=== PATIENT | female | born 1940 | race Two or more races ===

== ENCOUNTER 2017-01-12 04:11 | Inpatient (IN) | payer OTHER ==
[~2017-01-12] VITALS: Ht 160 cm; Wt 74.8 kg
[~2017-01-12 04:11] MED LIST: ATORVASTATIN CA80 MG PO; Aspirin PO; CARV3.122 PO; Doxycycline Hyclate PO; HYDR12.58 PO; IBUP200C9 PO; LEVO750T5 PO; LISI10TA2 PO
--- NOTE | 2017-01-12 04:33 | PHYS DOC ---
Past Medical History Past Medical History: CVA, High Cholesterol, Hypertension, Stroke Past Surgical History: Coronary Bypass Surgery Alcohol Use: None Drug Use: None Adult General Chief Complaint Chief Complaint: FLU SYMPTOM HPI HPI Patient is a 76 year old female who presents with 2 day history of general malaise and nausea with dry heaves; questionable subjective fever and cough; no diarrhea. Denies chest pain or shortness of breath. EMS noted a fever of 102.1 Fahrenheit. Review of Systems Review of Systems Constitutional: Denies fever or chills [] Eyes: Denies change in visual acuity, redness, or eye pain [] HENT: Denies nasal congestion or sore throat [] Respiratory: Denies cough or shortness of breath [] Cardiovascular: No additional information not addressed in HPI [] GI: Denies abdominal pain, nausea, vomiting, bloody stools or diarrhea [] : Denies dysuria or hematuria [] Musculoskeletal: Denies back pain or joint pain [] Integument: Denies rash or skin lesions [] Neurologic: Denies headache, focal weakness or sensory changes [] Endocrine: Denies polyuria or polydipsia [] Current Medications Current Medications Current Medications Medications (Trade) Dose Ordered Sig/Justino Start Time Stop Time Status Last Admin Dose Admin Azithromycin 500 mg/Sodium Chloride 250 ml @ 250 mls/hr 1X ONCE 01/12/17 05:15 01/12/17 06:14 UNV Ceftriaxone Sodium 1 gm/ Dextrose 50 ml @ 100 mls/hr Q24H 01/12/17 05:15 UNV Ondansetron HCl (Zofran) 4 mg 1X ONCE 01/12/17 05:00 01/12/17 05:01 DC 01/12/17 05:27 4 MG Sodium Chloride 500 ml @ 500 mls/hr 1X ONCE 01/12/17 05:00 01/12/17 05:59 01/12/17 05:22 500 MLS/HR Allergies Allergies Allergies Coded Allergies Type Severity Reaction Last Updated Verified No Known Drug Allergies 02/17/14 No Physical Exam Physical Exam Constitutional: Well developed, well nourished, no acute distress, non-toxic appearance. [] HENT: Normocephalic, atraumatic, bilateral external ears normal, oropharynx moist, no oral exudates, nose normal. [] Eyes: PERRLA, EOMI, conjunctiva normal, no discharge. [] Neck: Normal range of motion, no tenderness, supple, no stridor. [] Cardiovascular:Heart rate regular rhythm, no murmur [] Lungs & Thorax: Bilateral breath sounds clear to auscultation [] Abdomen: Bowel sounds normal, soft, no tenderness, no masses, no pulsatile masses. [] Skin: Warm, dry, no erythema, no rash. [] Back: No tenderness, no CVA tenderness. [] Extremities: No tenderness, no cyanosis, no clubbing, ROM intact, no edema. [] Neurologic: Alert and oriented X 3, normal motor function, normal sensory function, no focal deficits noted. [] Psychologic: Affect normal, judgement normal, mood normal. [] Current Patient Data Vital Signs Vital Signs Date Time Temp Pulse Resp B/P (MAP) Pulse Ox O2 Delivery O2 Flow Rate FiO2 01/12/17 04:29 100.2 89 22 156/87 (110) 91 Room Air 100.2 Lab Values Laboratory Tests Test 01/12/17 04:20 01/12/17 05:06 Urine Collection Type Unknown Urine Color Ale Urine Clarity Clear Urine pH 7.5 Urine Specific [place] 1.015 Urine Protein 30 mg/dL (NEG-TRACE) Urine Glucose (UA) Negative mg/dL (NEG) Urine Ketones (Stick) Negative mg/dL (NEG) Urine Blood Small (NEG) Urine Nitrite Negative (NEG) Urine Bilirubin Small (NEG) Urine Urobilinogen Dipstick 2.0 mg/dL (0.2 mg/dL) Urine Leukocyte Esterase Trace (NEG) Urine RBC 11-20 /HPF (0-2) Urine WBC 5-10 /HPF (0-4) Urine Squamous Epithelial Cells Many /LPF Urine Bacteria Few /HPF (0-FEW) Urine Mucus Slight /LPF Sodium Level 138 mmol/L (136-145) Potassium Level 4.0 mmol/L (3.5-5.1) Chloride Level 101 mmol/L (98-107) Carbon Dioxide Level 25 mmol/L (21-32) Anion Gap 12 (6-14) Blood Urea Nitrogen 26 mg/dL (7-20) H Creatinine 0.9 mg/dL (0.6-1.0) Estimated GFR (Cockcroft-Gault) 60.7 BUN/Creatinine Ratio 29 (6-20) H Glucose Level 132 mg/dL (70-99) H Lactic Acid Level 1.2 mmol/L (0.4-2.0) Calcium Level 9.6 mg/dL (8.5-10.1) Total Bilirubin Pending Aspartate Amino Transferase (AST) Pending Alanine Aminotransferase (ALT) Pending Alkaline Phosphatase Pending Total Protein Pending Albumin Pending Albumin/Globulin Ratio Pending Laboratory Tests 01/12/17 05:06 EKG EKG EKG normal sinus rhythm rate of 92 T-wave inversion in V1 and V2 V3 no priors for comparison QTC 473 my interpretation[] Radiology/Procedures Radiology/Procedures Chest x-ray[ infiltrate right lower lung, hiatal hernia my interpretation] Course & Med Decision Making Course & Med Decision Making Pertinent Labs and Imaging studies reviewed. (See chart for details) [Plan to hydrate, give Zofran, check labs including urinalysis and chest x-ray. Patient appears to have a right lower lobe infiltrate. Urinalysis looked okay. Treated with IV Rocephin and azithromycin. Discussed case with Dr. Bell hospitalist for admission. Stable for the floor.\ She was a difficult stick in terms of obtaining blood at the time of admission CBC and troponin are pending.] Dragon Disclaimer Dragon Disclaimer This electronic medical record was generated, in whole or in part, using a voice recognition dictation system. Departure Departure Impression: Primary Impression: Community acquired pneumonia Additional Impression: Hypoxia Disposition: 09 ADMITTED INPATIENT Admitting Physician: Rebecca Bell Condition: IMPROVED Referrals: HOLLIE PAGE (PCP) Problem Qualifiers NICHOLAS CALVERT MD Jan 12, 2017 04:33
[2017-01-12 04:52] LABS: BILIRUBIN,URINE SMALL (NEG); GLUCOSE,URINE NEGATIVE (NEG); NITRITE,URINE NEGATIVE (NEG); PH,URINE 7.5; PROTEIN,URINE 30 mg/dL (NEG-TRACE)
[2017-01-12] MEDS ORDERED: ONDANSETRON PF 4 MG/2 ML VIAL. IV ONE (05:00)
[2017-01-12] MEDS ORDERED: IV NORMAL SALINE 500ML BAG 500 ML IV ONE (05:00)
[2017-01-12 05:02] LABS: BACTERIA,URINE FEW /HPF (0-FEW); SQUAMOUS EPITHELIAL CELL,UR MANY /LPF
[2017-01-12] MEDS ORDERED: AZITHROMYCIN 500 MG in IV NORMAL SALINE 250ML 250 ML IV ONE (05:15)
[2017-01-12] MEDS ORDERED: IV NORMAL SALINE 1000ML BAG 1,000 ML IV SCH (05:24)
[2017-01-12 05:29] LABS: CALCIUM 9.6 mg/dL (8.5-10.1); CREATININE 0.9 mg/dL (0.6-1.0); GFR 60.7
[2017-01-12] MEDS ORDERED: ACETAMINOPHEN 325 MG TABLET. PO PRN (05:30)
[2017-01-12] MEDS ORDERED: ONDANSETRON PF 4 MG/2 ML VIAL. IV PRN ×2 (05:30→09:45)
[2017-01-12] MEDS ORDERED: MORPHINE SULFATE 2 MG/ML DISP.SYRIN. IV PRN (05:30)
[2017-01-12] MEDS ORDERED: AZITHRMYCN 500MG IVPB FOR OMNI 250 ML IV ONE (05:30)
[2017-01-12 05:44] LABS: ALBUMIN 3.6 g/dL (3.4-5.0); ALBUMIN/GLOBULIN RATIO 0.8 (1.0-1.7); TOTAL BILIRUBIN 2.7 mg/dL (0.2-1.0); TOTAL PROTEIN 7.9 g/dL (6.4-8.2)
[2017-01-12 05:49] LABS: BASO % 0 % (0-3); EOS % 1 % (0-3); HEMATOCRIT 36.1 % (36.0-47.0); LYMPH # 0.6 x10^3/uL (1.0-4.8); LYMPH % 10 % (24-48); MEAN CORPUSCULAR HEMOGLOBIN 32 pg (25-35); MEAN CORPUSCULAR HGB CONC 33 g/dL (31-37); MEAN CORPUSCULAR VOLUME 97 fL (79-100); MONO % 4 % (0-9); NEUT % 85 % (31-73); PLATELET COUNT 123 x10^3/uL (140-400); RED BLOOD COUNT 3.71 x10^6/uL (3.50-5.40); RED CELL DISTRIBUTION WIDTH 14.1 % (11.5-14.5); WHITE BLOOD COUNT 6.4 x10^3/uL (4.0-11.0)
[2017-01-12 05:51] LABS: OBC FLU VALID
--- NOTE | 2017-01-12 06:46 | EKG ---
[facility] [address] [place] [address] Test Date: 2017-01-12 Test Time: 06:41:37 Pat Name: WELLINGTON DINH Department: Room: 530 1 Gender: F Courtesy Van Driver: LAURYN : 1940 Requested By: NICHOLAS CALVERT Order Number: [id number] Reading MD: Marilyn Cueva Measurements Intervals [place] Rate: 86 P: -118 DC: 114 QRS: 24 QRSD: 90 T: 47 QT: 406 QTc: 489 Interpretive Statements SINUS RHYTHM ST& T ABNORMALITY, CONSIDER ANTERIOR ISCHEMIA ABNORMAL ECG Electronically Signed On 01-13-2017 16:46:38 CDT by Marilyn Cueva
[2017-01-12 07:00] VITALS: BP 124/65
[2017-01-12 07:52] LABS: % EOS 1 % (0-5); PLT ESTIMATE DECREASED (ADEQUATE)
--- NOTE | 2017-01-12 07:56 | PDOC2 ---
SOCORRO BENOIT ISOBUTYLENE OPERATOR CHIEF 01/12/17 0756: CARDIAC CONSULT DATE OF CONSULT Date of Consult DATE: 01/12/17 TIME: 07:52 REASON FOR CONSULT Reason for Consult: Elevated troponin REFERRING PHYSICIAN Referring Physician: Dr. Bell SOURCE Source: Chart review, Patient HISTORY OF PRESENT ILLNESS HISTORY OF PRESENT ILLNESS This is a 76 yo female who presented with complaints of not feeling well overall. Has had chills and "flu-like" symptoms for the last couple of days. Had nausea with vomiting yesterday. This morning, was short of breath. Called Ask a Nurse, who referred the patient to the ED. Denies any chest pain, palpitations, dizziness, or diaphoresis. PAST MEDICAL HISTORY Cardiovascular: HTN, Hyperlipidemia, Other (aortic aneurysm s/p repair 20 years ago) CENTRAL NERVOUS SYSTEM: CVA (following aneurysm repair) GI: GERD Heme/Onc: No pertinent hx Hepatobiliary: No pertinent hx Psych: No pertinent hx Musculoskeletal: Other (left-sided weakness CVA residual ) Rheumatologic: No pertinent hx Infectious disease: No pertinent hx ENT: No pertinent hx Renal/: No pertinent hx Endocrine: No pertinent hx Dermatology: No pertinent hx PAST SURGICAL HISTORY Past Surgical History: Other (knee surgery) FAMILY HISTORY Family History: Other (noncontributory ) SOCIAL HISTORY Smoke: No ALCOHOL: none Drugs: None Lives: with Family CURRENT MEDICATIONS CURRENT MEDICATIONS Current Medications Medications (Trade) Dose Ordered Sig/Justino Route PRN Reason Start Time Stop Time Status Last Admin Dose Admin Sodium Chloride 500 ml @ 500 mls/hr 1X ONCE IV 01/12/17 05:00 01/12/17 05:59 DC 01/12/17 05:22 Ondansetron HCl (Zofran) 4 mg 1X ONCE IV 01/12/17 05:00 01/12/17 05:01 DC 01/12/17 05:27 Ceftriaxone Sodium 50 ml @ 100 mls/hr 1X ONCE IV 01/12/17 05:30 01/12/17 05:59 DC 01/12/17 05:28 Azithromycin 250 ml @ 250 mls/hr 1X ONCE IV 01/12/17 05:30 01/12/17 06:29 DC 01/12/17 07:02 Sodium Chloride 1,000 ml @ 125 mls/hr Q8H IV 01/12/17 05:24 01/13/17 05:23 01/12/17 06:43 ALLERGIES ALLERGIES: Coded Allergies: No Known Drug Allergies (Unverified , 02/17/14) ROS Review of System 14 point ROS conducted with pertinent positives noted above in HPI. PHYSICAL EXAM General: Alert, Oriented X3, Cooperative HEENT: Atraumatic, Mucous membr. moist/pink Lungs: Clear to auscultation, Other (diminished bases ) Heart: Regular rate, Normal S1, Normal S2, Other (2/6 systolic murmur ) Abdomen: No tenderness Extremities: No edema, Normal pulses Skin: No significant lesion Neuro: Normal speech, Sensation intact Psych/Mental Status: Mental status NL, Mood NL MUSCULOSKELETAL: Other (left side strength diminished) VITALS VITALS Vital Signs Date Time Temp Pulse Resp B/P (MAP) Pulse Ox O2 Delivery O2 Flow Rate FiO2 01/12/17 05:47 91 25 134/61 (85) 98 Nasal Cannula 2.0 01/12/17 04:29 100.2 100.2 LABS Lab: Laboratory Tests Test 01/12/17 04:20 01/12/17 05:06 01/12/17 05:10 01/12/17 05:40 Urine Collection Type Unknown Urine Color Ale Urine Clarity Clear Urine pH 7.5 Urine Specific [place] 1.015 Urine Protein 30 mg/dL (NEG-TRACE) Urine Glucose (UA) Negative mg/dL (NEG) Urine Ketones (Stick) Negative mg/dL (NEG) Urine Blood Small (NEG) Urine Nitrite Negative (NEG) Urine Bilirubin Small (NEG) Urine Urobilinogen Dipstick 2.0 mg/dL (0.2 mg/dL) Urine Leukocyte Esterase Trace (NEG) Urine RBC 11-20 /HPF (0-2) Urine WBC 5-10 /HPF (0-4) Urine Squamous Epithelial Cells Many /LPF Urine Bacteria Few /HPF (0-FEW) Urine Mucus Slight /LPF Sodium Level 138 mmol/L (136-145) Potassium Level 4.0 mmol/L (3.5-5.1) Chloride Level 101 mmol/L (98-107) Carbon Dioxide Level 25 mmol/L (21-32) Anion Gap 12 (6-14) Blood Urea Nitrogen 26 mg/dL (7-20) Creatinine 0.9 mg/dL (0.6-1.0) Estimated GFR (Cockcroft-Gault) 60.7 BUN/Creatinine Ratio 29 (6-20) Glucose Level 132 mg/dL (70-99) Lactic Acid Level 1.2 mmol/L (0.4-2.0) Calcium Level 9.6 mg/dL (8.5-10.1) Total Bilirubin 2.7 mg/dL (0.2-1.0) Aspartate Amino Transf (AST/SGOT) 1136 U/L (15-37) Alanine Aminotransferase (ALT/SGPT) 1239 U/L (14-59) Alkaline Phosphatase 170 U/L (46-116) Troponin I Quantitative 0.143 ng/mL (0.000-0.055) Total Protein 7.9 g/dL (6.4-8.2) Albumin 3.6 g/dL (3.4-5.0) Albumin/Globulin Ratio 0.8 (1.0-1.7) Influenza Type A Antigen Negative (NEGATIVE) Influenza Type B Antigen Negative (NEGATIVE) White Blood Count 6.4 x10^3/uL (4.0-11.0) Red Blood Count 3.71 x10^6/uL (3.50-5.40) Hemoglobin 12.0 g/dL (12.0-15.5) Hematocrit 36.1 % (36.0-47.0) Mean Corpuscular Volume 97 fL (79-100) Mean Corpuscular Hemoglobin 32 pg (25-35) Mean Corpuscular Hemoglobin Concent 33 g/dL (31-37) Red Cell Distribution Width 14.1 % (11.5-14.5) Platelet Count 123 x10^3/uL (140-400) Neutrophils (%) (Auto) 85 % (31-73) Lymphocytes (%) (Auto) 10 % (24-48) Monocytes (%) (Auto) 4 % (0-9) Eosinophils (%) (Auto) 1 % (0-3) Basophils (%) (Auto) 0 % (0-3) Neutrophils # (Auto) 5.5 x10^3uL (1.8-7.7) Lymphocytes # (Auto) 0.6 x10^3/uL (1.0-4.8) Monocytes # (Auto) 0.3 x10^3/uL (0.0-1.1) Eosinophils # (Auto) 0.1 x10^3/uL (0.0-0.7) Basophils # (Auto) 0.0 x10^3/uL (0.0-0.2) ASSESSMENT/PLAN ASSESSMENT/PLAN 1. Elevated troponin; most probably type II demand ischemia. Doubt ACS 2. Acute respiratory failure with infiltrate versus pul edema. CT chest pending 3. Abdominal pain with transaminitis 4. Fevers 5. Hypertension 6. Hyperlipidemia Recommendations Trend troponin. Check lipids and NT Pro BNP Obtain echo to assess LV function/presence of WMA Resume home antiHTN therapy Supportive care. Further recommendations pending diagnostics. Problems: DAMON BURK MD 01/13/17 0111: CARDIAC CONSULT ALLERGIES ALLERGIES: Coded Allergies: No Known Drug Allergies (Unverified , 02/17/14) ASSESSMENT/PLAN ASSESSMENT/PLAN Pt. seen and examined. Agree with above PADDING GLUER note. Non-specific cardiac findings. Trop elevation likely secondary to other acute issues. No signs of HF Prior stress in 2015 wnl. Supportive care for now. Obtain echo as noted above. Will follow along peripherally. If GI w/u unrevealing, could then reconsider ischemic w/u thanks for consultation. Problems: SOCORRO BENOIT APRN Jan 12, 2017 07:56 DAMON BURK MD Jan 13, 2017 01:11
[2017-01-12 08:53] LABS: CHOLESTEROL/HDL RATIO 1.7
--- NOTE | 2017-01-12 09:17 | RAD ---
CHEST AP ONLY Clinical Indication: flu symptoms Comparison: Chest radiograph dated 11/26/2014 Findings: Low lung volume. Bilateral perihilar and basilar heterogenous air space opacities. Pulmonary vascular indistinctness. Possible small bilateral pleural effusions. No pneumothorax. Stable cardiomegaly. Stable tortuous and atherosclerotic thoracic aorta. No acute osseous abnormality. Prior median sternotomy. IMPRESSION: 1. Bilateral perihilar and basilar heterogenous air space opacities most likely related to pulmonary edema. Underlying infectious process would be difficult to exclude. Recommend continued radiographic follow-up to resolution. 2. Possible small bilateral pleural effusions. 3. Stable cardiomegaly.
--- NOTE | 2017-01-12 09:33 | PDOC1 ---
VIDAL NAJERA CHECK EMBOSSER 01/12/17 0933: HISTORY AND PHYSICAL Chief Complaint Chief Complaint This 76 year old [place] female has been admitted with a chief complaint of subjective fever, chills, nausea, dry heaves, cough and diarrhea. The onset was sudden yesterday. She denies abdominal pain. EMS was called and she was transported to the ED for evaluation. A temp of 102.1F is documented. Her temp on arrival was 100.2F rectal. CXR interpreted as RLL infiltrate per ER physician. Report is pulmonary edema vs infiltrate. BNP not obtained. EKG SR with mild elevation in troponin to 1.143. WBC 6.4. She was given one dose Zithromax and Rocephin in ER. There was no acute renal failure with BUN 26 Cr 0.9. Transaminitis was present with T bili 2.7, AST 1136, ALT 1239, and AP 170. She is admitted for further evaluation and treatment. Problem List Problems Medical Problems: (1) Community acquired pneumonia Status: Acute (2) Hypoxia Status: Acute Past Medical History Cardiovascular: CAD, HTN, Hyperlipidemia Pulmonary: Pneumonia (h/o) CENTRAL NERVOUS SYSTEM: CVA GI: GERD Psych: Anxiety Musculoskeletal: Osteoarthritis Past Surgical History Past Surgical History: CABG Past Family History Family History: Hypertension Past Social History PSH , limited Setswana speaking, no h/o tobacco, ETOH or illicit drugs Review of Symptoms Review of Symptoms A 14 point ROS was completed with the following noted as positive: per HPI Other systems reviewed and negative. Medications Medications reviewed and reconciled. Allergy Allergies Coded Allergies Type Severity Reaction Last Updated Verified No Known Drug Allergies 02/17/14 No Physical Exam Physical Exam General appearance - alert, ill appearing, and in no distress Mental Status - alert, oriented to person, place, and time, affect appropriate to mood Head - normal Chest - clear to auscultation, no wheezes, rales or rhonchi Heart - S1 and S2 normal Abdomen - soft, nontender, nondistended, obese, no masses or organomegaly Neurological - no acute focal neurological deficits noted. Musculoskeletal - no muscular tenderness noted Extremities - no pedal edema Skin - warm and dry VTE Prophylaxis Ordered VTE Prophylaxis Devices: Yes VTE Pharmacological Prophylaxi: No Assessment Labs Laboratory Tests Test 01/12/17 04:20 01/12/17 05:06 01/12/17 05:10 01/12/17 05:40 Urine Collection Type Unknown Urine Color Ale Urine Clarity Clear Urine pH 7.5 Urine Specific [place] 1.015 Urine Protein 30 mg/dL (NEG-TRACE) Urine Glucose (UA) Negative mg/dL (NEG) Urine Ketones (Stick) Negative mg/dL (NEG) Urine Blood Small (NEG) Urine Nitrite Negative (NEG) Urine Bilirubin Small (NEG) Urine Urobilinogen Dipstick 2.0 mg/dL (0.2 mg/dL) Urine Leukocyte Esterase Trace (NEG) Urine RBC 11-20 /HPF (0-2) Urine WBC 5-10 /HPF (0-4) Urine Squamous Epithelial Cells Many /LPF Urine Bacteria Few /HPF (0-FEW) Urine Mucus Slight /LPF Sodium Level 138 mmol/L (136-145) Potassium Level 4.0 mmol/L (3.5-5.1) Chloride Level 101 mmol/L (98-107) Carbon Dioxide Level 25 mmol/L (21-32) Anion Gap 12 (6-14) Blood Urea Nitrogen 26 mg/dL (7-20) Creatinine 0.9 mg/dL (0.6-1.0) Estimated GFR (Cockcroft-Gault) 60.7 BUN/Creatinine Ratio 29 (6-20) Glucose Level 132 mg/dL (70-99) Lactic Acid Level 1.2 mmol/L (0.4-2.0) Calcium Level 9.6 mg/dL (8.5-10.1) Total Bilirubin 2.7 mg/dL (0.2-1.0) Aspartate Amino Transf (AST/SGOT) 1136 U/L (15-37) Alanine Aminotransferase (ALT/SGPT) 1239 U/L (14-59) Alkaline Phosphatase 170 U/L (46-116) Troponin I Quantitative 0.143 ng/mL (0.000-0.055) Total Protein 7.9 g/dL (6.4-8.2) Albumin 3.6 g/dL (3.4-5.0) Albumin/Globulin Ratio 0.8 (1.0-1.7) Triglycerides Level 32 mg/dL (0-150) Cholesterol Level 100 mg/dL (0-200) LDL Cholesterol, Calculated 34 mg/dL (0-100) VLDL Cholesterol, Calculated 6 mg/dL (0-40) Non-HDL Cholesterol Calculated 40 mg/dL (0-129) HDL Cholesterol 60 mg/dL (40-60) Cholesterol/HDL Ratio 1.7 Influenza Type A Antigen Negative (NEGATIVE) Influenza Type B Antigen Negative (NEGATIVE) White Blood Count 6.4 x10^3/uL (4.0-11.0) Red Blood Count 3.71 x10^6/uL (3.50-5.40) Hemoglobin 12.0 g/dL (12.0-15.5) Hematocrit 36.1 % (36.0-47.0) Mean Corpuscular Volume 97 fL (79-100) Mean Corpuscular Hemoglobin 32 pg (25-35) Mean Corpuscular Hemoglobin Concent 33 g/dL (31-37) Red Cell Distribution Width 14.1 % (11.5-14.5) Platelet Count 123 x10^3/uL (140-400) Neutrophils (%) (Auto) 85 % (31-73) Lymphocytes (%) (Auto) 10 % (24-48) Monocytes (%) (Auto) 4 % (0-9) Eosinophils (%) (Auto) 1 % (0-3) Basophils (%) (Auto) 0 % (0-3) Neutrophils # (Auto) 5.5 x10^3uL (1.8-7.7) Lymphocytes # (Auto) 0.6 x10^3/uL (1.0-4.8) Monocytes # (Auto) 0.3 x10^3/uL (0.0-1.1) Eosinophils # (Auto) 0.1 x10^3/uL (0.0-0.7) Basophils # (Auto) 0.0 x10^3/uL (0.0-0.2) Segmented Neutrophils % 92 % (35-66) Lymphocytes % 4 % (24-48) Monocytes % 3 % (0-10) Eosinophils % 1 % (0-5) Platelet Estimate Decreased (ADEQUATE) Laboratory Tests Test 01/12/17 04:20 01/12/17 05:06 01/12/17 05:10 01/12/17 05:40 Urine Collection Type Unknown Urine Color Ale Urine Clarity Clear Urine pH 7.5 Urine Specific [place] 1.015 Urine Protein 30 mg/dL (NEG-TRACE) Urine Glucose (UA) Negative mg/dL (NEG) Urine Ketones (Stick) Negative mg/dL (NEG) Urine Blood Small (NEG) Urine Nitrite Negative (NEG) Urine Bilirubin Small (NEG) Urine Urobilinogen Dipstick 2.0 mg/dL (0.2 mg/dL) Urine Leukocyte Esterase Trace (NEG) Urine RBC 11-20 /HPF (0-2) Urine WBC 5-10 /HPF (0-4) Urine Squamous Epithelial Cells Many /LPF Urine Bacteria Few /HPF (0-FEW) Urine Mucus Slight /LPF Sodium Level 138 mmol/L (136-145) Potassium Level 4.0 mmol/L (3.5-5.1) Chloride Level 101 mmol/L (98-107) Carbon Dioxide Level 25 mmol/L (21-32) Anion Gap 12 (6-14) Blood Urea Nitrogen 26 mg/dL (7-20) Creatinine 0.9 mg/dL (0.6-1.0) Estimated GFR (Cockcroft-Gault) 60.7 BUN/Creatinine Ratio 29 (6-20) Glucose Level 132 mg/dL (70-99) Lactic Acid Level 1.2 mmol/L (0.4-2.0) Calcium Level 9.6 mg/dL (8.5-10.1) Total Bilirubin 2.7 mg/dL (0.2-1.0) Aspartate Amino Transf (AST/SGOT) 1136 U/L (15-37) Alanine Aminotransferase (ALT/SGPT) 1239 U/L (14-59) Alkaline Phosphatase 170 U/L (46-116) Troponin I Quantitative 0.143 ng/mL (0.000-0.055) Total Protein 7.9 g/dL (6.4-8.2) Albumin 3.6 g/dL (3.4-5.0) Albumin/Globulin Ratio 0.8 (1.0-1.7) Triglycerides Level 32 mg/dL (0-150) Cholesterol Level 100 mg/dL (0-200) LDL Cholesterol, Calculated 34 mg/dL (0-100) VLDL Cholesterol, Calculated 6 mg/dL (0-40) Non-HDL Cholesterol Calculated 40 mg/dL (0-129) HDL Cholesterol 60 mg/dL (40-60) Cholesterol/HDL Ratio 1.7 Influenza Type A Antigen Negative (NEGATIVE) Influenza Type B Antigen Negative (NEGATIVE) White Blood Count 6.4 x10^3/uL (4.0-11.0) Red Blood Count 3.71 x10^6/uL (3.50-5.40) Hemoglobin 12.0 g/dL (12.0-15.5) Hematocrit 36.1 % (36.0-47.0) Mean Corpuscular Volume 97 fL (79-100) Mean Corpuscular Hemoglobin 32 pg (25-35) Mean Corpuscular Hemoglobin Concent 33 g/dL (31-37) Red Cell Distribution Width 14.1 % (11.5-14.5) Platelet Count 123 x10^3/uL (140-400) Neutrophils (%) (Auto) 85 % (31-73) Lymphocytes (%) (Auto) 10 % (24-48) Monocytes (%) (Auto) 4 % (0-9) Eosinophils (%) (Auto) 1 % (0-3) Basophils (%) (Auto) 0 % (0-3) Neutrophils # (Auto) 5.5 x10^3uL (1.8-7.7) Lymphocytes # (Auto) 0.6 x10^3/uL (1.0-4.8) Monocytes # (Auto) 0.3 x10^3/uL (0.0-1.1) Eosinophils # (Auto) 0.1 x10^3/uL (0.0-0.7) Basophils # (Auto) 0.0 x10^3/uL (0.0-0.2) Segmented Neutrophils % 92 % (35-66) Lymphocytes % 4 % (24-48) Monocytes % 3 % (0-10) Eosinophils % 1 % (0-5) Platelet Estimate Decreased (ADEQUATE) Plan Plan 1. hypoxia with abnormal CXR infiltrate vs pulmonary edema 2. dyspnea cough 3. fever w/o leukocytosis 4. transaminitis w/o abdominal pain but with h/o n/v diarrhea 5. HTN 6. CAD with h/o CABG 7. hyperlipidemia 8. CKD II 9. chronic thrombocytopenia 10. GERD 11. anxiety 12. OA generalized PLAN: 01/12/17 abnormal CXR suggestive pneumonia vs pulmonary edema - pulmonary consult - rocephin IV and zithromax IV x 1 ED - continue rocephin - CT chest w/o contrast pending abnormal troponin - last EF 81% per MPI - cardiology consulted - ECHO pending - EKG no acute changes n/v diarrhea with transminitis - US abdomen pending - hepatitis profile pending - amlyase/lipase obtained although no h/o abdominal pain - clear liquids -GI consulted -IV NS 75cc/hr HTN -continue home meds DVT/GI prophylaxis - SCD/GLADYS PPI For more details regarding further plans, please refer to the orders. CARA SWIFT MD 01/12/17 1103: HISTORY AND PHYSICAL Plan Plan Abnormal Troponin- clinically no PR.Monitor. Abdominal pain,elevated LFts- ? etiology.No RUQ tenderness. D/w patient and . For more details regarding further plans, please refer to the orders.The patient was seen and examined by me. Chart reviewed and plan of care formulated. Discussed with, reviewed and agree with EXHIBIT DISPLAY REPRESENTATIVE's notes, plan of care and orders with modifications as necessary. VIDAL NAJERA APRN Jan 12, 2017 09:33 CARA SWIFT MD Jan 12, 2017 11:03
[2017-01-12] MEDS: IPRATRPIUM/ALBUTEROL 0.5/2.5MG 3 ML NEBU. NEB SCH ×3 (10:00→18:56)
[2017-01-12 10:07] LABS: AMYLASE 53 U/L (25-115)
[2017-01-12] MEDS ORDERED: ACETAMINOPHEN 650 MG/20.3 ML SOLUTION. PEG PRN (10:15)
[2017-01-12 11:00] VITALS: BP 124/64
--- NOTE | 2017-01-12 11:17 | EKG ---
[address] [place] [address] Test Date: 2017-01-12 Test Time: 04:57:42 Pat Name: WELLINGTON DINH Department: Room: 530 1 Gender: F Ice Carver: : 1940 Requested By: CARA SWIFT Order Number: [id number] Reading MD: Marilyn Cueva Measurements Intervals [place] Rate: 92 P: 44 IN: 206 QRS: 31 QRSD: 94 T: 42 QT: 378 QTc: 473 Interpretive Statements SINUS RHYTHM PROLONGED IN INTERVAL T ABNORMALITY IN ANTEROSEPTAL LEADS ABNORMAL ECG Electronically Signed On 01-13-2017 16:45:20 CDT by Marilyn Cueva
--- NOTE | 2017-01-12 12:17 | RAD ---
CT CHEST WITHOUT CONTRAST History: Infiltrates seen on chest radiograph, shortness breath Comparison: Chest radiograph performed the same day, CTA chest dated 07/19/2014 Technique: Helical CT of the chest was performed without contrast. Axial and coronal reconstructions were obtained. Findings: The thyroid is symmetric. Unchanged borderline enlarged right precarinal lymph node measuring 1.1 cm. No definite hilar adenopathy, although evaluation is limited without IV contrast. No axillary adenopathy. Moderate atherosclerotic calcifications of the tortuous thoracic aorta and its branches. No significant change in ectasia of the thoracic aorta with the cranial aspect of the ascending thoracic aorta measuring up to 4.5 cm, the arch measuring 3.9 cm and the descending aorta measuring 4.1 cm. Borderline cardiomegaly. There is no pericardial effusion. Dense coronary artery calcifications. Unchanged pulmonary trunk enlargement measuring up to 3.5 cm. Remote granulomatous disease. Peribronchovascular groundglass opacities, worst in the right lower lobe and lingula. No pleural effusion or pneumothorax. The central airways are patent. The visualized upper abdomen is unremarkable. Mild dextrocurvature curvature of the thoracic spine. There are mild degenerative changes of the thoracic spine. Prior median sternotomy. IMPRESSION: 1. Peribronchovascular groundglass opacities, worst in the right lower lobe and lingula. Findings may relate to edema and atelectasis, although an infectious process cannot be excluded. Recommend continued radiographic follow-up to resolution. 2. Unchanged ectatic thoracic aorta. 3. Unchanged borderline cardiomegaly. 4. Unchanged pulmonary trunk enlargement which can be seen with pulmonary hypertension. 5. Unchanged borderline enlarged precarinal lymph node. PQRS Compliance Statement: One or more of the following individualized dose reduction techniques were utilized for this examination: 1. Automated exposure control 2. Adjustment of the mA and/or kV according to patient size 3. Use of iterative reconstruction technique
--- NOTE | 2017-01-12 12:30 | RAD ---
COMPLETE ABDOMINAL ULTRASOUND Clinical History: abnormal LFTs Comparison: Abdominal ultrasound dated 11/14/2009, CT chest, pelvis dated 11/12/2009 Technique: Sonographic examination of the abdomen was performed and multiple grayscale and duplex Doppler static images were obtained. Findings: The liver measures 13.1 cm. It demonstrates diffuse increased echogenicity consistent with steatosis. Portal flow is hepatopetal. Prominent common bile duct measuring up to 0.9 cm. The gallbladder wall is not thickened. Cholelithiasis. No pericholecystic fluid. The pancreas is poorly visualized due to overlying bowel gas.. The right kidney measures 10.2 x 4.1 x 5.0 cm with a 2.9 x 2.4 x 3.0 cm simple cyst off the interpolar region. The left kidney is normal in morphology and echotexture and measures 8.7 x 4.7 x 5.0 cm. There is no hydronephrosis. The spleen is not enlarged, measuring 6.7 cm. Visualized portions of the abdominal aorta and IVC appear normal. IMPRESSION: 1. Hepatic steatosis. 2. Cholelithiasis without sonographic evidence of acute cholecystitis. 3. Prominent common bile duct, slightly larger than expected for age. No obstructive stone or obvious mass seen. MRCP or ERCP could be obtained for further evaluation if there is clinical concern. 4. Simple right renal cyst.
[2017-01-12] MEDS: CARVEDILOL 3.125 MG TABLET. PO SCH ×2 (12:32→18:24)
[2017-01-12] MEDS: ASPIRIN ENTERIC COATED 81 MG TABLET.DR. PO SCH (12:33)
[2017-01-12] MEDS: PANTOPRAZOLE 40 MG TABLET.DR. PO SCH (12:33)
[2017-01-12] MEDS: LISINOPRIL 10 MG TABLET PO SCH (12:33)
[2017-01-12] MEDS: IV NORMAL SALINE 1000ML BAG 1,000 ML IV SCH ×2 (12:35→22:08)
--- NOTE | 2017-01-12 14:14 | PDOC2 ---
CONSULT Date of Consult Date of Consult DATE: 01/12/17 TIME: 14:12 Reason for Consult Reason for Consult: Tranaminitis/dilated CBD Past Medical History Cardiovascular: HTN, Hyperlipidemia, Other (aortic aneurysm s/p repair 20 years ago) Pulmonary: Pneumonia (h/o) CENTRAL NERVOUS SYSTEM: CVA (following aneurysm repair) GI: GERD Heme/Onc: No pertinent hx Hepatobiliary: No pertinent hx Psych: No pertinent hx Musculoskeletal: Other (left-sided weakness CVA residual ) Rheumatologic: No pertinent hx Infectious disease: No pertinent hx ENT: No pertinent hx Renal/: No pertinent hx Endocrine: No pertinent hx Dermatology: No pertinent hx Past Surgical History Past Surgical History: Other (knee surgery) Family History Family History: Other (noncontributory ) Social History No ALCOHOL: none Drugs: None Lives: with Family Domestic Violence: Neg Current Problem List Problem List Problems Medical Problems: (1) Community acquired pneumonia Status: Acute (2) Hypoxia Status: Acute Current Medications Current Medications Current Medications Sodium Chloride 500 ml @ 500 mls/hr 1X ONCE IV Last administered on 05:22; Start 01/12/17 at 05:00; Stop 01/12/17 at 05:59; Status DC Ondansetron HCl (Zofran) 4 mg 1X ONCE IV Last administered on 01/12/17 05:27 ; Start 01/12/17 at 05:00; Stop 01/12/17 at 05:01; Status DC Ceftriaxone Sodium 1 gm/ Dextrose 50 ml @ 100 mls/hr Q24H IV ; Start 01/12/17 at 05:15; Status UNV Azithromycin 500 mg/Sodium Chloride 250 ml @ 250 mls/hr 1X ONCE IV ; Start at 05:15; Stop 01/12/17 at 06:14; Status UNV Ceftriaxone Sodium 50 ml @ 100 mls/hr 1X ONCE IV Last administered on 05:28; Start 01/12/17 at 05:30; Stop 01/12/17 at 05:59; Status DC Azithromycin 250 ml @ 250 mls/hr 1X ONCE IV Last administered on 01/12/17 07:02; Start 01/12/17 at 05:30; Stop 01/12/17 at 06:29; Status DC Ondansetron HCl (Zofran) 4 mg PRN Q8HRS PRN IV NAUSEA/VOMITING; Start at 05:30; Stop 01/12/17 at 10:08; Status DC Morphine Sulfate 2 mg PRN Q2HR PRN IV SEVERE PAIN; Start 01/12/17 at 05:30; Stop 01/12/17 at 10:08; Status DC Sodium Chloride 1,000 ml @ 125 mls/hr Q8H IV Last administered on 01/12/17 06:43; Start 01/12/17 at 05:24; Stop 01/12/17 at 10:06; Status DC Acetaminophen (Tylenol) 650 mg PRN Q4HRS PRN PO FEVER; Start 01/12/17 at 05:30 ; Stop 01/13/17 at 05:29 Carvedilol (Coreg) 3.125 mg BIDWMEALS PO Last administered on 01/12/17 12:32 ; Start 01/12/17 at 10:00 Lisinopril (Prinivil) 10 mg DAILY PO Last administered on 01/12/17 12:33; Start 01/12/17 at 10:00 Aspirin (Ecotrin) 81 mg DAILYWBKFT PO Last administered on 01/12/17 12:33; Start 01/12/17 at 10:00 Ondansetron HCl (Zofran) 4 mg PRN Q6HRS PRN IV NAUSEA/VOMITING; Start at 09:45 Albuterol/ Ipratropium (Duoneb) 3 ml RTQID NEB Last administered on 01/12/17 10:00; Start 01/12/17 at 10:00 Sodium Chloride 1,000 ml @ 75 mls/hr [id number] IV Last administered on 12:35; Start 01/12/17 at 10:15 Ceftriaxone Sodium 1 gm/ Sodium Chloride 50 ml @ 100 mls/hr Q24H IV ; Start at 06:00 Acetaminophen (Tylenol) 650 mg PRN Q6HRS PRN PEG MILD PAIN / TEMP; Start 01/12 at 10:15 Pantoprazole Sodium (Protonix) 40 mg DAILYAC PO Last administered on 12:33; Start 01/12/17 at 10:30 Active Scripts Active [Aspirin] 325 MG Tablet 81 Mg PO DAILYWBKFT Reported Lisinopril 10 Mg Tablet 10 Mg PO DAILY Hydrochlorothiazide Tablet (Hydrochlorothiazide) 12.5 Mg Tablet 12.5 Mg PO DAILY Advil (Ibuprofen) 200 Mg Capsule 200 Mg PO PRN Q4-6HRS PRN Carvedilol 3.125 Mg Tablet 1 Tab PO BID Atorvastatin Calcium 80 Mg Tablet 1 Tab PO QHS Allergies Allergies: Coded Allergies: No Known Drug Allergies (Unverified , 02/17/14) Vitals VITALS Vital Signs Date Time Temp Pulse Resp B/P (MAP) Pulse Ox O2 Delivery O2 Flow Rate FiO2 01/12/17 12:33 90 124/64 01/12/17 11:00 97.5 19 92 Room Air 97.5 01/12/17 10:08 2.0 Labs Labs Laboratory Tests Test 01/12/17 04:20 01/12/17 05:06 01/12/17 05:10 01/12/17 05:40 Urine Collection Type Unknown Urine Color Ale Urine Clarity Clear Urine pH 7.5 Urine Specific [place] 1.015 Urine Protein 30 mg/dL (NEG-TRACE) Urine Glucose (UA) Negative mg/dL (NEG) Urine Ketones (Stick) Negative mg/dL (NEG) Urine Blood Small (NEG) Urine Nitrite Negative (NEG) Urine Bilirubin Small (NEG) Urine Urobilinogen Dipstick 2.0 mg/dL (0.2 mg/dL) Urine Leukocyte Esterase Trace (NEG) Urine RBC 11-20 /HPF (0-2) Urine WBC 5-10 /HPF (0-4) Urine Squamous Epithelial Cells Many /LPF Urine Bacteria Few /HPF (0-FEW) Urine Mucus Slight /LPF Sodium Level 138 mmol/L (136-145) Potassium Level 4.0 mmol/L (3.5-5.1) Chloride Level 101 mmol/L (98-107) Carbon Dioxide Level 25 mmol/L (21-32) Anion Gap 12 (6-14) Blood Urea Nitrogen 26 mg/dL (7-20) Creatinine 0.9 mg/dL (0.6-1.0) Estimated GFR (Cockcroft-Gault) 60.7 BUN/Creatinine Ratio 29 (6-20) Glucose Level 132 mg/dL (70-99) Lactic Acid Level 1.2 mmol/L (0.4-2.0) Calcium Level 9.6 mg/dL (8.5-10.1) Total Bilirubin 2.7 mg/dL (0.2-1.0) Aspartate Amino Transf (AST/SGOT) 1136 U/L (15-37) Alanine Aminotransferase (ALT/SGPT) 1239 U/L (14-59) Alkaline Phosphatase 170 U/L (46-116) Troponin I Quantitative 0.143 ng/mL (0.000-0.055) VR-Byd-G-Type Natriuretic Peptide 553 pg/mL (0-449) Total Protein 7.9 g/dL (6.4-8.2) Albumin 3.6 g/dL (3.4-5.0) Albumin/Globulin Ratio 0.8 (1.0-1.7) Triglycerides Level 32 mg/dL (0-150) Cholesterol Level 100 mg/dL (0-200) LDL Cholesterol, Calculated 34 mg/dL (0-100) VLDL Cholesterol, Calculated 6 mg/dL (0-40) Non-HDL Cholesterol Calculated 40 mg/dL (0-129) HDL Cholesterol 60 mg/dL (40-60) Cholesterol/HDL Ratio 1.7 Amylase Level 53 U/L (25-115) Lipase 162 U/L (73-393) Influenza Type A Antigen Negative (NEGATIVE) Influenza Type B Antigen Negative (NEGATIVE) White Blood Count 6.4 x10^3/uL (4.0-11.0) Red Blood Count 3.71 x10^6/uL (3.50-5.40) Hemoglobin 12.0 g/dL (12.0-15.5) Hematocrit 36.1 % (36.0-47.0) Mean Corpuscular Volume 97 fL (79-100) Mean Corpuscular Hemoglobin 32 pg (25-35) Mean Corpuscular Hemoglobin Concent 33 g/dL (31-37) Red Cell Distribution Width 14.1 % (11.5-14.5) Platelet Count 123 x10^3/uL (140-400) Neutrophils (%) (Auto) 85 % (31-73) Lymphocytes (%) (Auto) 10 % (24-48) Monocytes (%) (Auto) 4 % (0-9) Eosinophils (%) (Auto) 1 % (0-3) Basophils (%) (Auto) 0 % (0-3) Neutrophils # (Auto) 5.5 x10^3uL (1.8-7.7) Lymphocytes # (Auto) 0.6 x10^3/uL (1.0-4.8) Monocytes # (Auto) 0.3 x10^3/uL (0.0-1.1) Eosinophils # (Auto) 0.1 x10^3/uL (0.0-0.7) Basophils # (Auto) 0.0 x10^3/uL (0.0-0.2) Segmented Neutrophils % 92 % (35-66) Lymphocytes % 4 % (24-48) Monocytes % 3 % (0-10) Eosinophils % 1 % (0-5) Platelet Estimate Decreased (ADEQUATE) Test 01/12/17 12:10 Troponin I Quantitative 0.165 ng/mL (0.000-0.055) Laboratory Tests Test 01/12/17 04:20 01/12/17 05:06 01/12/17 05:10 01/12/17 05:40 Urine Collection Type Unknown Urine Color Ale Urine Clarity Clear Urine pH 7.5 Urine Specific [place] 1.015 Urine Protein 30 mg/dL (NEG-TRACE) Urine Glucose (UA) Negative mg/dL (NEG) Urine Ketones (Stick) Negative mg/dL (NEG) Urine Blood Small (NEG) Urine Nitrite Negative (NEG) Urine Bilirubin Small (NEG) Urine Urobilinogen Dipstick 2.0 mg/dL (0.2 mg/dL) Urine Leukocyte Esterase Trace (NEG) Urine RBC 11-20 /HPF (0-2) Urine WBC 5-10 /HPF (0-4) Urine Squamous Epithelial Cells Many /LPF Urine Bacteria Few /HPF (0-FEW) Urine Mucus Slight /LPF Sodium Level 138 mmol/L (136-145) Potassium Level 4.0 mmol/L (3.5-5.1) Chloride Level 101 mmol/L (98-107) Carbon Dioxide Level 25 mmol/L (21-32) Anion Gap 12 (6-14) Blood Urea Nitrogen 26 mg/dL (7-20) Creatinine 0.9 mg/dL (0.6-1.0) Estimated GFR (Cockcroft-Gault) 60.7 BUN/Creatinine Ratio 29 (6-20) Glucose Level 132 mg/dL (70-99) Lactic Acid Level 1.2 mmol/L (0.4-2.0) Calcium Level 9.6 mg/dL (8.5-10.1) Total Bilirubin 2.7 mg/dL (0.2-1.0) Aspartate Amino Transf (AST/SGOT) 1136 U/L (15-37) Alanine Aminotransferase (ALT/SGPT) 1239 U/L (14-59) Alkaline Phosphatase 170 U/L (46-116) Troponin I Quantitative 0.143 ng/mL (0.000-0.055) YX-Yyg-D-Type Natriuretic Peptide 553 pg/mL (0-449) Total Protein 7.9 g/dL (6.4-8.2) Albumin 3.6 g/dL (3.4-5.0) Albumin/Globulin Ratio 0.8 (1.0-1.7) Triglycerides Level 32 mg/dL (0-150) Cholesterol Level 100 mg/dL (0-200) LDL Cholesterol, Calculated 34 mg/dL (0-100) VLDL Cholesterol, Calculated 6 mg/dL (0-40) Non-HDL Cholesterol Calculated 40 mg/dL (0-129) HDL Cholesterol 60 mg/dL (40-60) Cholesterol/HDL Ratio 1.7 Amylase Level 53 U/L (25-115) Lipase 162 U/L (73-393) Influenza Type A Antigen Negative (NEGATIVE) Influenza Type B Antigen Negative (NEGATIVE) White Blood Count 6.4 x10^3/uL (4.0-11.0) Red Blood Count 3.71 x10^6/uL (3.50-5.40) Hemoglobin 12.0 g/dL (12.0-15.5) Hematocrit 36.1 % (36.0-47.0) Mean Corpuscular Volume 97 fL (79-100) Mean Corpuscular Hemoglobin 32 pg (25-35) Mean Corpuscular Hemoglobin Concent 33 g/dL (31-37) Red Cell Distribution Width 14.1 % (11.5-14.5) Platelet Count 123 x10^3/uL (140-400) Neutrophils (%) (Auto) 85 % (31-73) Lymphocytes (%) (Auto) 10 % (24-48) Monocytes (%) (Auto) 4 % (0-9) Eosinophils (%) (Auto) 1 % (0-3) Basophils (%) (Auto) 0 % (0-3) Neutrophils # (Auto) 5.5 x10^3uL (1.8-7.7) Lymphocytes # (Auto) 0.6 x10^3/uL (1.0-4.8) Monocytes # (Auto) 0.3 x10^3/uL (0.0-1.1) Eosinophils # (Auto) 0.1 x10^3/uL (0.0-0.7) Basophils # (Auto) 0.0 x10^3/uL (0.0-0.2) Segmented Neutrophils % 92 % (35-66) Lymphocytes % 4 % (24-48) Monocytes % 3 % (0-10) Eosinophils % 1 % (0-5) Platelet Estimate Decreased (ADEQUATE) Test 01/12/17 12:10 Troponin I Quantitative 0.165 ng/mL (0.000-0.055) Assessment/Plan Assessment/Plan Transaminitis- with dialted CBD, differential includes: CHF, hepatitis B/c, retained CBD stone, and/or ascending cholangitis. Plan MRCP viral serologies serial LFTS Full note dictated SHIN BRIGHT MD Jan 12, 2017 14:14
--- NOTE | 2017-01-12 14:45 | PDOC ---
PULMONARY PROGRESS NOTES Vitals Vital Signs Date Time Temp Pulse Resp B/P (MAP) Pulse Ox O2 Delivery O2 Flow Rate FiO2 01/12/17 12:33 90 124/64 01/12/17 11:00 97.5 19 92 Room Air 97.5 01/12/17 10:08 2.0 Labs Laboratory Tests Test 01/12/17 04:20 01/12/17 05:06 01/12/17 05:10 01/12/17 05:40 Urine Collection Type Unknown Urine Color Ale Urine Clarity Clear Urine pH 7.5 Urine Specific [place] 1.015 Urine Protein 30 mg/dL (NEG-TRACE) Urine Glucose (UA) Negative mg/dL (NEG) Urine Ketones (Stick) Negative mg/dL (NEG) Urine Blood Small (NEG) Urine Nitrite Negative (NEG) Urine Bilirubin Small (NEG) Urine Urobilinogen Dipstick 2.0 mg/dL (0.2 mg/dL) Urine Leukocyte Esterase Trace (NEG) Urine RBC 11-20 /HPF (0-2) Urine WBC 5-10 /HPF (0-4) Urine Squamous Epithelial Cells Many /LPF Urine Bacteria Few /HPF (0-FEW) Urine Mucus Slight /LPF Sodium Level 138 mmol/L (136-145) Potassium Level 4.0 mmol/L (3.5-5.1) Chloride Level 101 mmol/L (98-107) Carbon Dioxide Level 25 mmol/L (21-32) Anion Gap 12 (6-14) Blood Urea Nitrogen 26 mg/dL (7-20) Creatinine 0.9 mg/dL (0.6-1.0) Estimated GFR (Cockcroft-Gault) 60.7 BUN/Creatinine Ratio 29 (6-20) Glucose Level 132 mg/dL (70-99) Lactic Acid Level 1.2 mmol/L (0.4-2.0) Calcium Level 9.6 mg/dL (8.5-10.1) Total Bilirubin 2.7 mg/dL (0.2-1.0) Aspartate Amino Transf (AST/SGOT) 1136 U/L (15-37) Alanine Aminotransferase (ALT/SGPT) 1239 U/L (14-59) Alkaline Phosphatase 170 U/L (46-116) Troponin I Quantitative 0.143 ng/mL (0.000-0.055) WT-Psh-O-Type Natriuretic Peptide 553 pg/mL (0-449) Total Protein 7.9 g/dL (6.4-8.2) Albumin 3.6 g/dL (3.4-5.0) Albumin/Globulin Ratio 0.8 (1.0-1.7) Triglycerides Level 32 mg/dL (0-150) Cholesterol Level 100 mg/dL (0-200) LDL Cholesterol, Calculated 34 mg/dL (0-100) VLDL Cholesterol, Calculated 6 mg/dL (0-40) Non-HDL Cholesterol Calculated 40 mg/dL (0-129) HDL Cholesterol 60 mg/dL (40-60) Cholesterol/HDL Ratio 1.7 Amylase Level 53 U/L (25-115) Lipase 162 U/L (73-393) Influenza Type A Antigen Negative (NEGATIVE) Influenza Type B Antigen Negative (NEGATIVE) White Blood Count 6.4 x10^3/uL (4.0-11.0) Red Blood Count 3.71 x10^6/uL (3.50-5.40) Hemoglobin 12.0 g/dL (12.0-15.5) Hematocrit 36.1 % (36.0-47.0) Mean Corpuscular Volume 97 fL (79-100) Mean Corpuscular Hemoglobin 32 pg (25-35) Mean Corpuscular Hemoglobin Concent 33 g/dL (31-37) Red Cell Distribution Width 14.1 % (11.5-14.5) Platelet Count 123 x10^3/uL (140-400) Neutrophils (%) (Auto) 85 % (31-73) Lymphocytes (%) (Auto) 10 % (24-48) Monocytes (%) (Auto) 4 % (0-9) Eosinophils (%) (Auto) 1 % (0-3) Basophils (%) (Auto) 0 % (0-3) Neutrophils # (Auto) 5.5 x10^3uL (1.8-7.7) Lymphocytes # (Auto) 0.6 x10^3/uL (1.0-4.8) Monocytes # (Auto) 0.3 x10^3/uL (0.0-1.1) Eosinophils # (Auto) 0.1 x10^3/uL (0.0-0.7) Basophils # (Auto) 0.0 x10^3/uL (0.0-0.2) Segmented Neutrophils % 92 % (35-66) Lymphocytes % 4 % (24-48) Monocytes % 3 % (0-10) Eosinophils % 1 % (0-5) Platelet Estimate Decreased (ADEQUATE) Test 01/12/17 12:10 Troponin I Quantitative 0.165 ng/mL (0.000-0.055) Laboratory Tests Test 01/12/17 04:20 01/12/17 05:06 01/12/17 05:10 01/12/17 05:40 Urine Collection Type Unknown Urine Color Ale Urine Clarity Clear Urine pH 7.5 Urine Specific [place] 1.015 Urine Protein 30 mg/dL (NEG-TRACE) Urine Glucose (UA) Negative mg/dL (NEG) Urine Ketones (Stick) Negative mg/dL (NEG) Urine Blood Small (NEG) Urine Nitrite Negative (NEG) Urine Bilirubin Small (NEG) Urine Urobilinogen Dipstick 2.0 mg/dL (0.2 mg/dL) Urine Leukocyte Esterase Trace (NEG) Urine RBC 11-20 /HPF (0-2) Urine WBC 5-10 /HPF (0-4) Urine Squamous Epithelial Cells Many /LPF Urine Bacteria Few /HPF (0-FEW) Urine Mucus Slight /LPF Sodium Level 138 mmol/L (136-145) Potassium Level 4.0 mmol/L (3.5-5.1) Chloride Level 101 mmol/L (98-107) Carbon Dioxide Level 25 mmol/L (21-32) Anion Gap 12 (6-14) Blood Urea Nitrogen 26 mg/dL (7-20) Creatinine 0.9 mg/dL (0.6-1.0) Estimated GFR (Cockcroft-Gault) 60.7 BUN/Creatinine Ratio 29 (6-20) Glucose Level 132 mg/dL (70-99) Lactic Acid Level 1.2 mmol/L (0.4-2.0) Calcium Level 9.6 mg/dL (8.5-10.1) Total Bilirubin 2.7 mg/dL (0.2-1.0) Aspartate Amino Transf (AST/SGOT) 1136 U/L (15-37) Alanine Aminotransferase (ALT/SGPT) 1239 U/L (14-59) Alkaline Phosphatase 170 U/L (46-116) Troponin I Quantitative 0.143 ng/mL (0.000-0.055) YT-Nge-W-Type Natriuretic Peptide 553 pg/mL (0-449) Total Protein 7.9 g/dL (6.4-8.2) Albumin 3.6 g/dL (3.4-5.0) Albumin/Globulin Ratio 0.8 (1.0-1.7) Triglycerides Level 32 mg/dL (0-150) Cholesterol Level 100 mg/dL (0-200) LDL Cholesterol, Calculated 34 mg/dL (0-100) VLDL Cholesterol, Calculated 6 mg/dL (0-40) Non-HDL Cholesterol Calculated 40 mg/dL (0-129) HDL Cholesterol 60 mg/dL (40-60) Cholesterol/HDL Ratio 1.7 Amylase Level 53 U/L (25-115) Lipase 162 U/L (73-393) Influenza Type A Antigen Negative (NEGATIVE) Influenza Type B Antigen Negative (NEGATIVE) White Blood Count 6.4 x10^3/uL (4.0-11.0) Red Blood Count 3.71 x10^6/uL (3.50-5.40) Hemoglobin 12.0 g/dL (12.0-15.5) Hematocrit 36.1 % (36.0-47.0) Mean Corpuscular Volume 97 fL (79-100) Mean Corpuscular Hemoglobin 32 pg (25-35) Mean Corpuscular Hemoglobin Concent 33 g/dL (31-37) Red Cell Distribution Width 14.1 % (11.5-14.5) Platelet Count 123 x10^3/uL (140-400) Neutrophils (%) (Auto) 85 % (31-73) Lymphocytes (%) (Auto) 10 % (24-48) Monocytes (%) (Auto) 4 % (0-9) Eosinophils (%) (Auto) 1 % (0-3) Basophils (%) (Auto) 0 % (0-3) Neutrophils # (Auto) 5.5 x10^3uL (1.8-7.7) Lymphocytes # (Auto) 0.6 x10^3/uL (1.0-4.8) Monocytes # (Auto) 0.3 x10^3/uL (0.0-1.1) Eosinophils # (Auto) 0.1 x10^3/uL (0.0-0.7) Basophils # (Auto) 0.0 x10^3/uL (0.0-0.2) Segmented Neutrophils % 92 % (35-66) Lymphocytes % 4 % (24-48) Monocytes % 3 % (0-10) Eosinophils % 1 % (0-5) Platelet Estimate Decreased (ADEQUATE) Test 01/12/17 12:10 Troponin I Quantitative 0.165 ng/mL (0.000-0.055) Medications Active Scripts Medications Dose Route/Sig Max Daily Dose Days Date Category Lisinopril 10 Mg Tablet 10 Mg PO DAILY 11/27/14 Reported Hydrochlorothiazide Tablet (Hydrochlorothiazide) 12.5 Mg Tablet 12.5 Mg PO DAILY 11/27/14 Reported Advil (Ibuprofen) 200 Mg Capsule 200 Mg PO PRN Q4-6HRS PRN 11/27/14 Reported [Aspirin] 325 MG Tablet 81 Mg PO DAILYWBKFT 07/21/14 Rx Carvedilol 3.125 Mg Tablet 1 Tab PO BID 07/20/14 Reported Atorvastatin Calcium 80 Mg Tablet 1 Tab PO QHS 07/20/14 Reported Impression . FULL CONSULT DICTATED PNEUMONIA AGREE WITH CURRENT RX PARAG SERRANO MD Jan 12, 2017 14:45
[2017-01-12 15:00] VITALS: BP 105/54
[2017-01-12 18:22] VITALS: BP 114/61
[2017-01-12 19:00] VITALS: BP 131/76
[2017-01-12 23:00] VITALS: BP 98/52
[2017-01-13 03:19] VITALS: BP 107/61
[2017-01-13 06:08] LABS: BASO % 1 % (0-3); EOS % 2 % (0-3); HEMATOCRIT 33.9 % (36.0-47.0); HEMOGLOBIN 11.1 g/dL (12.0-15.5); LYMPH # 0.9 x10^3/uL (1.0-4.8); LYMPH % 18 % (24-48); MEAN CORPUSCULAR HEMOGLOBIN 33 pg (25-35); MEAN CORPUSCULAR HGB CONC 33 g/dL (31-37); MEAN CORPUSCULAR VOLUME 100 fL (79-100); MONO % 7 % (0-9); NEUT % 73 % (31-73); PLATELET COUNT 105 x10^3/uL (140-400); RED BLOOD COUNT 3.39 x10^6/uL (3.50-5.40); RED CELL DISTRIBUTION WIDTH 15.2 % (11.5-14.5); WHITE BLOOD COUNT 5.2 x10^3/uL (4.0-11.0)
[2017-01-13 06:10] LABS: AMYLASE 47 U/L (25-115)
[2017-01-13 06:22] LABS: ALBUMIN 2.9 g/dL (3.4-5.0); ALBUMIN/GLOBULIN RATIO 0.8 (1.0-1.7); CALCIUM 8.8 mg/dL (8.5-10.1); CREATININE 0.8 mg/dL (0.6-1.0); GFR 69.6; POTASSIUM 4.4 mmol/L (3.5-5.1); TOTAL BILIRUBIN 1.3 mg/dL (0.2-1.0); TOTAL PROTEIN 6.6 g/dL (6.4-8.2)
[2017-01-13 07:00] VITALS: BP 125/52
--- NOTE | 2017-01-13 07:21 | CONS ---
DATE OF CONSULTATION: 01/12/2017 ATTENDING PHYSICIAN: Dr. Rebecca Bell. REASON FOR CONSULTATION: The patient is seen in pulmonary consultation at the request of Dr. Bell for abnormal x-ray, increasing shortness of breath. HISTORY OF PRESENT ILLNESS: The patient is a 76-year-old female, daughter was present as an brown sourer today, history of generalized malaise, nausea, dry heaves, fever at home, cough, mostly nonproductive. The patient underwent a chest x-ray. I personally reviewed CT of the chest, which revealed some ground-glass opacities, mostly on the right. PAST MEDICAL HISTORY: Otherwise remarkable for CVA, hyperlipidemia, hypertension, coronary artery bypass grafting. PAST SURGICAL HISTORY: Coronary artery bypass grafting. ALLERGIES: No known drug allergies. SOCIAL HISTORY: She has never smoked. FAMILY HISTORY: Noncontributory. REVIEW OF SYSTEMS: As indicated above, otherwise, a 10-point system was reviewed and negative. PHYSICAL EXAMINATION: GENERAL: The patient was in no significant respiratory distress. VITAL SIGNS: She had T-max of 100.2. HEENT: Eyes, the sclerae were nonicteric. NECK: Jugular venous distention was not elevated. No lymphadenopathy. CHEST: Full expansion. LUNGS: Scattered rhonchi. No wheezes. CARDIOVASCULAR: Regular rate and rhythm with S1, S2, no S3. ABDOMEN: Soft, nontender, nondistended. EXTREMITIES: No clubbing, cyanosis or pitting edema. NEUROLOGIC: The patient was awake, alert, following commands. A detailed neuro exam was not performed. LABORATORY DATA: White count was normal. Hemoglobin and hematocrit noted. Electrolytes were noted. BUN was elevated. AST and ALT were elevated. IMPRESSION: 1. Abnormal x-ray. 2. Suspect gram-negative, possibly gram-positive pneumonia. 3. Elevated liver chemistries. 4. Fever. 5. Possible sepsis. PLAN: 1. Continue current antibiotics. 2. Nebulized treatments. 3. GI evaluation for elevated chemistries I do appreciate the privilege in sharing in the patient's care. PARAG SERRANO MD DR: ELIJAH/yessenia JOB#: [id number] / [id number]
[2017-01-13] MEDS: PANTOPRAZOLE 40 MG TABLET.DR. PO SCH (07:30)
[2017-01-13] MEDS: IPRATRPIUM/ALBUTEROL 0.5/2.5MG 3 ML NEBU. NEB SCH ×4 (07:35→20:12)
[2017-01-13] MEDS: CARVEDILOL 3.125 MG TABLET. PO SCH ×2 (08:00→17:21)
[2017-01-13] MEDS: ASPIRIN ENTERIC COATED 81 MG TABLET.DR. PO SCH (08:00)
[2017-01-13] MEDS: LISINOPRIL 10 MG TABLET PO SCH (09:00)
--- NOTE | 2017-01-13 09:50 | PDOC ---
IM PROGRESS NOTES- Subjective Subjective No c/o abdominal pain,dyspnea.Wants to go home. Objective Vitals Vital Signs Date Time Temp Pulse Resp B/P (MAP) Pulse Ox O2 Delivery O2 Flow Rate FiO2 01/13/17 09:00 59 125/52 01/13/17 08:00 Nasal Cannula 2.0 01/13/17 07:36 96 01/13/17 07:00 98.1 19 98.1 Physical Exam Physical Exam General appearance - alert,well appearing, and in no distress Head - normal Chest - occasional coarse breath sounds Heart - S1 and S2 normal Abdomen - soft, nontender, nondistended, no masses or organomegaly,obese Neurological - alert and oriented Musculoskeletal - no muscular tenderness noted Extremities - no pedal edema Skin - warm and dry Labs Laboratory Tests Test 01/12/17 04:20 01/12/17 05:06 01/12/17 05:10 01/12/17 05:40 Urine Collection Type Unknown Urine Color Ale Urine Clarity Clear Urine pH 7.5 Urine Specific [place] 1.015 Urine Protein 30 mg/dL (NEG-TRACE) Urine Glucose (UA) Negative mg/dL (NEG) Urine Ketones (Stick) Negative mg/dL (NEG) Urine Blood Small (NEG) Urine Nitrite Negative (NEG) Urine Bilirubin Small (NEG) Urine Urobilinogen Dipstick 2.0 mg/dL (0.2 mg/dL) Urine Leukocyte Esterase Trace (NEG) Urine RBC 11-20 /HPF (0-2) Urine WBC 5-10 /HPF (0-4) Urine Squamous Epithelial Cells Many /LPF Urine Bacteria Few /HPF (0-FEW) Urine Mucus Slight /LPF Sodium Level 138 mmol/L (136-145) Potassium Level 4.0 mmol/L (3.5-5.1) Chloride Level 101 mmol/L (98-107) Carbon Dioxide Level 25 mmol/L (21-32) Anion Gap 12 (6-14) Blood Urea Nitrogen 26 mg/dL (7-20) Creatinine 0.9 mg/dL (0.6-1.0) Estimated GFR (Cockcroft-Gault) 60.7 BUN/Creatinine Ratio 29 (6-20) Glucose Level 132 mg/dL (70-99) Lactic Acid Level 1.2 mmol/L (0.4-2.0) Calcium Level 9.6 mg/dL (8.5-10.1) Total Bilirubin 2.7 mg/dL (0.2-1.0) Aspartate Amino Transf (AST/SGOT) 1136 U/L (15-37) Alanine Aminotransferase (ALT/SGPT) 1239 U/L (14-59) Alkaline Phosphatase 170 U/L (46-116) Troponin I Quantitative 0.143 ng/mL (0.000-0.055) WM-Pla-L-Type Natriuretic Peptide 553 pg/mL (0-449) Total Protein 7.9 g/dL (6.4-8.2) Albumin 3.6 g/dL (3.4-5.0) Albumin/Globulin Ratio 0.8 (1.0-1.7) Triglycerides Level 32 mg/dL (0-150) Cholesterol Level 100 mg/dL (0-200) LDL Cholesterol, Calculated 34 mg/dL (0-100) VLDL Cholesterol, Calculated 6 mg/dL (0-40) Non-HDL Cholesterol Calculated 40 mg/dL (0-129) HDL Cholesterol 60 mg/dL (40-60) Cholesterol/HDL Ratio 1.7 Amylase Level 53 U/L (25-115) Lipase 162 U/L (73-393) Influenza Type A Antigen Negative (NEGATIVE) Influenza Type B Antigen Negative (NEGATIVE) White Blood Count 6.4 x10^3/uL (4.0-11.0) Red Blood Count 3.71 x10^6/uL (3.50-5.40) Hemoglobin 12.0 g/dL (12.0-15.5) Hematocrit 36.1 % (36.0-47.0) Mean Corpuscular Volume 97 fL (79-100) Mean Corpuscular Hemoglobin 32 pg (25-35) Mean Corpuscular Hemoglobin Concent 33 g/dL (31-37) Red Cell Distribution Width 14.1 % (11.5-14.5) Platelet Count 123 x10^3/uL (140-400) Neutrophils (%) (Auto) 85 % (31-73) Lymphocytes (%) (Auto) 10 % (24-48) Monocytes (%) (Auto) 4 % (0-9) Eosinophils (%) (Auto) 1 % (0-3) Basophils (%) (Auto) 0 % (0-3) Neutrophils # (Auto) 5.5 x10^3uL (1.8-7.7) Lymphocytes # (Auto) 0.6 x10^3/uL (1.0-4.8) Monocytes # (Auto) 0.3 x10^3/uL (0.0-1.1) Eosinophils # (Auto) 0.1 x10^3/uL (0.0-0.7) Basophils # (Auto) 0.0 x10^3/uL (0.0-0.2) Segmented Neutrophils % 92 % (35-66) Lymphocytes % 4 % (24-48) Monocytes % 3 % (0-10) Eosinophils % 1 % (0-5) Platelet Estimate Decreased (ADEQUATE) Test 01/12/17 12:10 01/12/17 18:10 01/13/17 05:10 01/13/17 06:36 Troponin I Quantitative 0.165 ng/mL (0.000-0.055) 0.092 ng/mL (0.000-0.055) White Blood Count 5.2 x10^3/uL (4.0-11.0) Red Blood Count 3.39 x10^6/uL (3.50-5.40) Hemoglobin 11.1 g/dL (12.0-15.5) Hematocrit 33.9 % (36.0-47.0) Mean Corpuscular Volume 100 fL (79-100) Mean Corpuscular Hemoglobin 33 pg (25-35) Mean Corpuscular Hemoglobin Concent 33 g/dL (31-37) Red Cell Distribution Width 15.2 % (11.5-14.5) Platelet Count 105 x10^3/uL (140-400) Neutrophils (%) (Auto) 73 % (31-73) Lymphocytes (%) (Auto) 18 % (24-48) Monocytes (%) (Auto) 7 % (0-9) Eosinophils (%) (Auto) 2 % (0-3) Basophils (%) (Auto) 1 % (0-3) Neutrophils # (Auto) 3.8 x10^3uL (1.8-7.7) Lymphocytes # (Auto) 0.9 x10^3/uL (1.0-4.8) Monocytes # (Auto) 0.3 x10^3/uL (0.0-1.1) Eosinophils # (Auto) 0.1 x10^3/uL (0.0-0.7) Basophils # (Auto) 0.0 x10^3/uL (0.0-0.2) Sodium Level 141 mmol/L (136-145) Potassium Level 4.4 mmol/L (3.5-5.1) Chloride Level 108 mmol/L (98-107) Carbon Dioxide Level 21 mmol/L (21-32) Anion Gap 12 (6-14) Blood Urea Nitrogen 19 mg/dL (7-20) Creatinine 0.8 mg/dL (0.6-1.0) Estimated GFR (Cockcroft-Gault) 69.6 BUN/Creatinine Ratio 24 (6-20) Glucose Level 49 mg/dL (70-99) Calcium Level 8.8 mg/dL (8.5-10.1) Magnesium Level 2.4 mg/dL (1.8-2.4) Total Bilirubin 1.3 mg/dL (0.2-1.0) Aspartate Amino Transf (AST/SGOT) 496 U/L (15-37) Alanine Aminotransferase (ALT/SGPT) 748 U/L (14-59) Alkaline Phosphatase 135 U/L (46-116) Total Protein 6.6 g/dL (6.4-8.2) Albumin 2.9 g/dL (3.4-5.0) Albumin/Globulin Ratio 0.8 (1.0-1.7) Amylase Level 47 U/L (25-115) Lipase 117 U/L (73-393) Glucose (Fingerstick) 97 mg/dL (70-99) Laboratory Tests Test 01/12/17 12:10 01/12/17 18:10 01/13/17 05:10 01/13/17 06:36 Troponin I Quantitative 0.165 ng/mL (0.000-0.055) 0.092 ng/mL (0.000-0.055) White Blood Count 5.2 x10^3/uL (4.0-11.0) Red Blood Count 3.39 x10^6/uL (3.50-5.40) Hemoglobin 11.1 g/dL (12.0-15.5) Hematocrit 33.9 % (36.0-47.0) Mean Corpuscular Volume 100 fL (79-100) Mean Corpuscular Hemoglobin 33 pg (25-35) Mean Corpuscular Hemoglobin Concent 33 g/dL (31-37) Red Cell Distribution Width 15.2 % (11.5-14.5) Platelet Count 105 x10^3/uL (140-400) Neutrophils (%) (Auto) 73 % (31-73) Lymphocytes (%) (Auto) 18 % (24-48) Monocytes (%) (Auto) 7 % (0-9) Eosinophils (%) (Auto) 2 % (0-3) Basophils (%) (Auto) 1 % (0-3) Neutrophils # (Auto) 3.8 x10^3uL (1.8-7.7) Lymphocytes # (Auto) 0.9 x10^3/uL (1.0-4.8) Monocytes # (Auto) 0.3 x10^3/uL (0.0-1.1) Eosinophils # (Auto) 0.1 x10^3/uL (0.0-0.7) Basophils # (Auto) 0.0 x10^3/uL (0.0-0.2) Sodium Level 141 mmol/L (136-145) Potassium Level 4.4 mmol/L (3.5-5.1) Chloride Level 108 mmol/L (98-107) Carbon Dioxide Level 21 mmol/L (21-32) Anion Gap 12 (6-14) Blood Urea Nitrogen 19 mg/dL (7-20) Creatinine 0.8 mg/dL (0.6-1.0) Estimated GFR (Cockcroft-Gault) 69.6 BUN/Creatinine Ratio 24 (6-20) Glucose Level 49 mg/dL (70-99) Calcium Level 8.8 mg/dL (8.5-10.1) Magnesium Level 2.4 mg/dL (1.8-2.4) Total Bilirubin 1.3 mg/dL (0.2-1.0) Aspartate Amino Transf (AST/SGOT) 496 U/L (15-37) Alanine Aminotransferase (ALT/SGPT) 748 U/L (14-59) Alkaline Phosphatase 135 U/L (46-116) Total Protein 6.6 g/dL (6.4-8.2) Albumin 2.9 g/dL (3.4-5.0) Albumin/Globulin Ratio 0.8 (1.0-1.7) Amylase Level 47 U/L (25-115) Lipase 117 U/L (73-393) Glucose (Fingerstick) 97 mg/dL (70-99) Meds Current Medications Acetaminophen (Tylenol) 650 mg PRN Q6HRS PRN PEG MILD PAIN / TEMP; Start 01/12 at 10:15 Albuterol/ Ipratropium (Duoneb) 3 ml RTQID NEB Last administered on 01/13/17 07:35; Start 01/12/17 at 10:00 Aspirin (Ecotrin) 81 mg DAILYWBKFT PO Last administered on 01/12/17 12:33; Start 01/12/17 at 10:00 Carvedilol (Coreg) 3.125 mg BIDWMEALS PO Last administered on 01/12/17 18:24 ; Start 01/12/17 at 10:00 Ceftriaxone Sodium 1 gm/ Sodium Chloride 50 ml @ 100 mls/hr Q24H IV Last administered on 01/13/17 06:04; Start 01/13/17 at 06:00 Lisinopril (Prinivil) 10 mg DAILY PO Last administered on 01/12/17 12:33; Start 01/12/17 at 10:00 Pantoprazole Sodium (Protonix) 40 mg DAILYAC PO Last administered on 12:33; Start 01/12/17 at 10:30 Sodium Chloride 1,000 ml @ 75 mls/hr [id number] IV Last administered on 22:08; Start 01/12/17 at 10:15 Assessment Assessment 1. hypoxia with abnormal CXR infiltrate vs pulmonary edema 2. dyspnea cough 3. fever w/o leukocytosis 4. transaminitis w/o abdominal pain but with h/o n/v diarrhea 5. HTN 6. CAD with h/o CABG 7. hyperlipidemia 8. CKD II 9. chronic thrombocytopenia 10. GERD 11. anxiety 12. OA generalized PLAN: 01/12/17 abnormal CXR suggestive pneumonia vs pulmonary edema - pulmonary consult - rocephin IV and zithromax IV x 1 ED - continue rocephin - CT chest w/o contrast IMPRESSION: 1. Peribronchovascular groundglass opacities, worst in the right lower lobe and lingula. Findings may relate to edema and atelectasis, although an infectious process cannot be excluded. Recommend continued radiographic follow-up to resolution. 2. Unchanged ectatic thoracic aorta. 3. Unchanged borderline cardiomegaly. 4. Unchanged pulmonary trunk enlargement which can be seen with pulmonary hypertension. 5. Unchanged borderline enlarged precarinal lymph node. abnormal troponin - last EF 81% per MPI - cardiology consulted - ECHO pending - EKG no acute changesTroponin levels improving.Likely non cardiac. n/v diarrhea with transminitis - US abdomen pending - hepatitis profile pending - amlyase/lipase obtained although no h/o abdominal pain - clear liquids -GI consulted -IV NS 75cc/hr HTN -continue home meds DVT/GI prophylaxis - SCD/GLADYS PPI Elevated LFTs improving.Gall sones,dilated bile duct.MRCP today. D/w patient and . Plan Plan Abnormal Troponin- clinically no [place].Monitor. Abdominal pain,elevated LFts- ? etiology.No RUQ tenderness. D/w patient and . For more details regarding further plans, please refer to the orders.The patient was seen and examined by me. Chart reviewed and plan of care formulated. Discussed with, reviewed and agree with FILTER WORKER's notes, plan of care and orders with modifications as necessary. CARA SWIFT MD Jan 13, 2017 09:50
[2017-01-13 11:00] VITALS: BP 130/61
--- NOTE | 2017-01-13 11:05 | PDOC ---
G I PROGRESS NOTE Reason for Follow-up Transaminitis/abd pain Subjective Feeling better Physical Exam Lungs clear CV S1 S2 ABD +BS, soft, nontender Review of Relevant I have reviewed the following items rabia (where applicable) has been applied. Labs Laboratory Tests Test 01/12/17 04:20 01/12/17 05:06 01/12/17 05:10 01/12/17 05:40 Urine Collection Type Unknown Urine Color Ale Urine Clarity Clear Urine pH 7.5 Urine Specific [place] 1.015 Urine Protein 30 mg/dL (NEG-TRACE) Urine Glucose (UA) Negative mg/dL (NEG) Urine Ketones (Stick) Negative mg/dL (NEG) Urine Blood Small (NEG) Urine Nitrite Negative (NEG) Urine Bilirubin Small (NEG) Urine Urobilinogen Dipstick 2.0 mg/dL (0.2 mg/dL) Urine Leukocyte Esterase Trace (NEG) Urine RBC 11-20 /HPF (0-2) Urine WBC 5-10 /HPF (0-4) Urine Squamous Epithelial Cells Many /LPF Urine Bacteria Few /HPF (0-FEW) Urine Mucus Slight /LPF Sodium Level 138 mmol/L (136-145) Potassium Level 4.0 mmol/L (3.5-5.1) Chloride Level 101 mmol/L (98-107) Carbon Dioxide Level 25 mmol/L (21-32) Anion Gap 12 (6-14) Blood Urea Nitrogen 26 mg/dL (7-20) Creatinine 0.9 mg/dL (0.6-1.0) Estimated GFR (Cockcroft-Gault) 60.7 BUN/Creatinine Ratio 29 (6-20) Glucose Level 132 mg/dL (70-99) Lactic Acid Level 1.2 mmol/L (0.4-2.0) Calcium Level 9.6 mg/dL (8.5-10.1) Total Bilirubin 2.7 mg/dL (0.2-1.0) Aspartate Amino Transf (AST/SGOT) 1136 U/L (15-37) Alanine Aminotransferase (ALT/SGPT) 1239 U/L (14-59) Alkaline Phosphatase 170 U/L (46-116) Troponin I Quantitative 0.143 ng/mL (0.000-0.055) YK-[id number]-[id number]-Type Natriuretic Peptide 553 pg/mL (0-449) Total Protein 7.9 g/dL (6.4-8.2) Albumin 3.6 g/dL (3.4-5.0) Albumin/Globulin Ratio 0.8 (1.0-1.7) Triglycerides Level 32 mg/dL (0-150) Cholesterol Level 100 mg/dL (0-200) LDL Cholesterol, Calculated 34 mg/dL (0-100) VLDL Cholesterol, Calculated 6 mg/dL (0-40) Non-HDL Cholesterol Calculated 40 mg/dL (0-129) HDL Cholesterol 60 mg/dL (40-60) Cholesterol/HDL Ratio 1.7 Amylase Level 53 U/L (25-115) Lipase 162 U/L (73-393) Influenza Type A Antigen Negative (NEGATIVE) Influenza Type B Antigen Negative (NEGATIVE) White Blood Count 6.4 x10^3/uL (4.0-11.0) Red Blood Count 3.71 x10^6/uL (3.50-5.40) Hemoglobin 12.0 g/dL (12.0-15.5) Hematocrit 36.1 % (36.0-47.0) Mean Corpuscular Volume 97 fL (79-100) Mean Corpuscular Hemoglobin 32 pg (25-35) Mean Corpuscular Hemoglobin Concent 33 g/dL (31-37) Red Cell Distribution Width 14.1 % (11.5-14.5) Platelet Count 123 x10^3/uL (140-400) Neutrophils (%) (Auto) 85 % (31-73) Lymphocytes (%) (Auto) 10 % (24-48) Monocytes (%) (Auto) 4 % (0-9) Eosinophils (%) (Auto) 1 % (0-3) Basophils (%) (Auto) 0 % (0-3) Neutrophils # (Auto) 5.5 x10^3uL (1.8-7.7) Lymphocytes # (Auto) 0.6 x10^3/uL (1.0-4.8) Monocytes # (Auto) 0.3 x10^3/uL (0.0-1.1) Eosinophils # (Auto) 0.1 x10^3/uL (0.0-0.7) Basophils # (Auto) 0.0 x10^3/uL (0.0-0.2) Segmented Neutrophils % 92 % (35-66) Lymphocytes % 4 % (24-48) Monocytes % 3 % (0-10) Eosinophils % 1 % (0-5) Platelet Estimate Decreased (ADEQUATE) Test 01/12/17 12:10 01/12/17 18:10 01/13/17 05:10 01/13/17 06:36 Troponin I Quantitative 0.165 ng/mL (0.000-0.055) 0.092 ng/mL (0.000-0.055) White Blood Count 5.2 x10^3/uL (4.0-11.0) Red Blood Count 3.39 x10^6/uL (3.50-5.40) Hemoglobin 11.1 g/dL (12.0-15.5) Hematocrit 33.9 % (36.0-47.0) Mean Corpuscular Volume 100 fL (79-100) Mean Corpuscular Hemoglobin 33 pg (25-35) Mean Corpuscular Hemoglobin Concent 33 g/dL (31-37) Red Cell Distribution Width 15.2 % (11.5-14.5) Platelet Count 105 x10^3/uL (140-400) Neutrophils (%) (Auto) 73 % (31-73) Lymphocytes (%) (Auto) 18 % (24-48) Monocytes (%) (Auto) 7 % (0-9) Eosinophils (%) (Auto) 2 % (0-3) Basophils (%) (Auto) 1 % (0-3) Neutrophils # (Auto) 3.8 x10^3uL (1.8-7.7) Lymphocytes # (Auto) 0.9 x10^3/uL (1.0-4.8) Monocytes # (Auto) 0.3 x10^3/uL (0.0-1.1) Eosinophils # (Auto) 0.1 x10^3/uL (0.0-0.7) Basophils # (Auto) 0.0 x10^3/uL (0.0-0.2) Sodium Level 141 mmol/L (136-145) Potassium Level 4.4 mmol/L (3.5-5.1) Chloride Level 108 mmol/L (98-107) Carbon Dioxide Level 21 mmol/L (21-32) Anion Gap 12 (6-14) Blood Urea Nitrogen 19 mg/dL (7-20) Creatinine 0.8 mg/dL (0.6-1.0) Estimated GFR (Cockcroft-Gault) 69.6 BUN/Creatinine Ratio 24 (6-20) Glucose Level 49 mg/dL (70-99) Calcium Level 8.8 mg/dL (8.5-10.1) Magnesium Level 2.4 mg/dL (1.8-2.4) Total Bilirubin 1.3 mg/dL (0.2-1.0) Aspartate Amino Transf (AST/SGOT) 496 U/L (15-37) Alanine Aminotransferase (ALT/SGPT) 748 U/L (14-59) Alkaline Phosphatase 135 U/L (46-116) Total Protein 6.6 g/dL (6.4-8.2) Albumin 2.9 g/dL (3.4-5.0) Albumin/Globulin Ratio 0.8 (1.0-1.7) Amylase Level 47 U/L (25-115) Lipase 117 U/L (73-393) Glucose (Fingerstick) 97 mg/dL (70-99) Laboratory Tests Test 01/12/17 12:10 01/12/17 18:10 01/13/17 05:10 01/13/17 06:36 Troponin I Quantitative 0.165 ng/mL (0.000-0.055) 0.092 ng/mL (0.000-0.055) White Blood Count 5.2 x10^3/uL (4.0-11.0) Red Blood Count 3.39 x10^6/uL (3.50-5.40) Hemoglobin 11.1 g/dL (12.0-15.5) Hematocrit 33.9 % (36.0-47.0) Mean Corpuscular Volume 100 fL (79-100) Mean Corpuscular Hemoglobin 33 pg (25-35) Mean Corpuscular Hemoglobin Concent 33 g/dL (31-37) Red Cell Distribution Width 15.2 % (11.5-14.5) Platelet Count 105 x10^3/uL (140-400) Neutrophils (%) (Auto) 73 % (31-73) Lymphocytes (%) (Auto) 18 % (24-48) Monocytes (%) (Auto) 7 % (0-9) Eosinophils (%) (Auto) 2 % (0-3) Basophils (%) (Auto) 1 % (0-3) Neutrophils # (Auto) 3.8 x10^3uL (1.8-7.7) Lymphocytes # (Auto) 0.9 x10^3/uL (1.0-4.8) Monocytes # (Auto) 0.3 x10^3/uL (0.0-1.1) Eosinophils # (Auto) 0.1 x10^3/uL (0.0-0.7) Basophils # (Auto) 0.0 x10^3/uL (0.0-0.2) Sodium Level 141 mmol/L (136-145) Potassium Level 4.4 mmol/L (3.5-5.1) Chloride Level 108 mmol/L (98-107) Carbon Dioxide Level 21 mmol/L (21-32) Anion Gap 12 (6-14) Blood Urea Nitrogen 19 mg/dL (7-20) Creatinine 0.8 mg/dL (0.6-1.0) Estimated GFR (Cockcroft-Gault) 69.6 BUN/Creatinine Ratio 24 (6-20) Glucose Level 49 mg/dL (70-99) Calcium Level 8.8 mg/dL (8.5-10.1) Magnesium Level 2.4 mg/dL (1.8-2.4) Total Bilirubin 1.3 mg/dL (0.2-1.0) Aspartate Amino Transf (AST/SGOT) 496 U/L (15-37) Alanine Aminotransferase (ALT/SGPT) 748 U/L (14-59) Alkaline Phosphatase 135 U/L (46-116) Total Protein 6.6 g/dL (6.4-8.2) Albumin 2.9 g/dL (3.4-5.0) Albumin/Globulin Ratio 0.8 (1.0-1.7) Amylase Level 47 U/L (25-115) Lipase 117 U/L (73-393) Glucose (Fingerstick) 97 mg/dL (70-99) Microbiology 01/12/17 Blood Culture - Final, Complete 01/12/17 Urine Culture - Preliminary, Resulted 01/12/17 Urine Culture Result 1 (MIKE) - Preliminary, Resulted Medications Current Medications Sodium Chloride 500 ml @ 500 mls/hr 1X ONCE IV Last administered on 05:22; Start 01/12/17 at 05:00; Stop 01/12/17 at 05:59; Status DC Ondansetron HCl (Zofran) 4 mg 1X ONCE IV Last administered on 01/12/17 05:27 ; Start 01/12/17 at 05:00; Stop 01/12/17 at 05:01; Status DC Ceftriaxone Sodium 1 gm/ Dextrose 50 ml @ 100 mls/hr Q24H IV ; Start 01/12/17 at 05:15; Status UNV Azithromycin 500 mg/Sodium Chloride 250 ml @ 250 mls/hr 1X ONCE IV ; Start at 05:15; Stop 01/12/17 at 06:14; Status UNV Ceftriaxone Sodium 50 ml @ 100 mls/hr 1X ONCE IV Last administered on 05:28; Start 01/12/17 at 05:30; Stop 01/12/17 at 05:59; Status DC Azithromycin 250 ml @ 250 mls/hr 1X ONCE IV Last administered on 01/12/17 07:02; Start 01/12/17 at 05:30; Stop 01/12/17 at 06:29; Status DC Ondansetron HCl (Zofran) 4 mg PRN Q8HRS PRN IV NAUSEA/VOMITING; Start at 05:30; Stop 01/12/17 at 10:08; Status DC Morphine Sulfate 2 mg PRN Q2HR PRN IV SEVERE PAIN; Start 01/12/17 at 05:30; Stop 01/12/17 at 10:08; Status DC Sodium Chloride 1,000 ml @ 125 mls/hr Q8H IV Last administered on 01/12/17 06:43; Start 01/12/17 at 05:24; Stop 01/12/17 at 10:06; Status DC Acetaminophen (Tylenol) 650 mg PRN Q4HRS PRN PO FEVER; Start 01/12/17 at 05:30 ; Stop 01/13/17 at 05:29; Status DC Carvedilol (Coreg) 3.125 mg BIDWMEALS PO Last administered on 01/12/17 18:24 ; Start 01/12/17 at 10:00 Lisinopril (Prinivil) 10 mg DAILY PO Last administered on 01/12/17 12:33; Start 01/12/17 at 10:00 Aspirin (Ecotrin) 81 mg DAILYWBKFT PO Last administered on 01/12/17 12:33; Start 01/12/17 at 10:00 Ondansetron HCl (Zofran) 4 mg PRN Q6HRS PRN IV NAUSEA/VOMITING; Start at 09:45 Albuterol/ Ipratropium (Duoneb) 3 ml RTQID NEB Last administered on 01/13/17 07:35; Start 01/12/17 at 10:00 Sodium Chloride 1,000 ml @ 75 mls/hr [id number] IV Last administered on 22:08; Start 01/12/17 at 10:15 Ceftriaxone Sodium 1 gm/ Sodium Chloride 50 ml @ 100 mls/hr Q24H IV Last administered on 01/13/17 06:04; Start 01/13/17 at 06:00 Acetaminophen (Tylenol) 650 mg PRN Q6HRS PRN PEG MILD PAIN / TEMP; Start 01/12 at 10:15 Pantoprazole Sodium (Protonix) 40 mg DAILYAC PO Last administered on 12:33; Start 01/12/17 at 10:30 Active Scripts Active [Aspirin] 325 MG Tablet 81 Mg PO DAILYWBKFT Reported Lisinopril 10 Mg Tablet 10 Mg PO DAILY Hydrochlorothiazide Tablet (Hydrochlorothiazide) 12.5 Mg Tablet 12.5 Mg PO DAILY Advil (Ibuprofen) 200 Mg Capsule 200 Mg PO PRN Q4-6HRS PRN Carvedilol 3.125 Mg Tablet 1 Tab PO BID Atorvastatin Calcium 80 Mg Tablet 1 Tab PO QHS Vitals/I & O Vital Sign - Last 24 Hours 01/12/17 01/12/17 01/12/17 01/12/17 12:32 12:33 15:00 15:33 Temp 98.6 98.6 Pulse 90 90 79 Resp 19 B/P (MAP) 124/64 124/64 105/54 (71) Pulse Ox 83 O2 Delivery Room Air Room Air 01/12/17 01/12/17 01/12/17 01/12/17 18:22 18:24 18:57 19:00 Temp 98.0 98.0 Pulse 66 66 74 Resp 19 20 B/P (MAP) 114/61 (78) 114/61 131/76 (94) Pulse Ox 94 96 91 O2 Delivery Nasal Cannula Nasal Cannula Nasal Cannula O2 Flow Rate 2.0 2.0 01/12/17 01/12/17 01/13/17 01/13/17 20:00 23:00 03:19 07:00 Temp 98.7 97.7 98.1 98.7 97.7 98.1 Pulse 70 59 59 Resp 20 20 19 B/P (MAP) 98/52 (67) 107/61 (76) 125/52 (76) Pulse Ox 91 94 96 O2 Delivery Nasal Cannula Nasal Cannula Nasal Cannula Nasal Cannula O2 Flow Rate 2.0 01/13/17 01/13/17 01/13/17 01/13/17 07:36 08:00 08:00 09:00 Pulse 59 59 B/P (MAP) 125/52 125/52 Pulse Ox 96 O2 Delivery Nasal Cannula Nasal Cannula O2 Flow Rate 2.0 2.0 Problem List Problems Medical Problems: (1) Community acquired pneumonia Status: Acute (2) Hypoxia Status: Acute Plan of Care Note Transamiinits- with cholelithiasis, await MRCP to assess for retained CBD stones , cpm SHIN BRIGHT MD Jan 13, 2017 11:05
[2017-01-13] MEDS: IV NORMAL SALINE 1000ML BAG 1,000 ML IV SCH ×2 (12:55→19:41)
--- NOTE | 2017-01-13 13:05 | PDOC ---
PULMONARY PROGRESS NOTES Subjective PT NOT MORE SOA Vitals Vital Signs Date Time Temp Pulse Resp B/P (MAP) Pulse Ox O2 Delivery O2 Flow Rate FiO2 01/13/17 11:39 Nasal Cannula 2.0 01/13/17 11:00 97.9 68 19 130/61 (84) 89 97.9 Lungs: Crackles Cardiovascular: S1, S2 Abdomen: Soft Neuro Exam: Alert Extremities: No Edema Skin: Warm Labs Laboratory Tests Test 01/12/17 04:20 01/12/17 05:06 01/12/17 05:10 01/12/17 05:40 Urine Collection Type Unknown Urine Color Ale Urine Clarity Clear Urine pH 7.5 Urine Specific [place] 1.015 Urine Protein 30 mg/dL (NEG-TRACE) Urine Glucose (UA) Negative mg/dL (NEG) Urine Ketones (Stick) Negative mg/dL (NEG) Urine Blood Small (NEG) Urine Nitrite Negative (NEG) Urine Bilirubin Small (NEG) Urine Urobilinogen Dipstick 2.0 mg/dL (0.2 mg/dL) Urine Leukocyte Esterase Trace (NEG) Urine RBC 11-20 /HPF (0-2) Urine WBC 5-10 /HPF (0-4) Urine Squamous Epithelial Cells Many /LPF Urine Bacteria Few /HPF (0-FEW) Urine Mucus Slight /LPF Sodium Level 138 mmol/L (136-145) Potassium Level 4.0 mmol/L (3.5-5.1) Chloride Level 101 mmol/L (98-107) Carbon Dioxide Level 25 mmol/L (21-32) Anion Gap 12 (6-14) Blood Urea Nitrogen 26 mg/dL (7-20) Creatinine 0.9 mg/dL (0.6-1.0) Estimated GFR (Cockcroft-Gault) 60.7 BUN/Creatinine Ratio 29 (6-20) Glucose Level 132 mg/dL (70-99) Lactic Acid Level 1.2 mmol/L (0.4-2.0) Calcium Level 9.6 mg/dL (8.5-10.1) Total Bilirubin 2.7 mg/dL (0.2-1.0) Aspartate Amino Transf (AST/SGOT) 1136 U/L (15-37) Alanine Aminotransferase (ALT/SGPT) 1239 U/L (14-59) Alkaline Phosphatase 170 U/L (46-116) Troponin I Quantitative 0.143 ng/mL (0.000-0.055) XY-Uwv-X-Type Natriuretic Peptide 553 pg/mL (0-449) Total Protein 7.9 g/dL (6.4-8.2) Albumin 3.6 g/dL (3.4-5.0) Albumin/Globulin Ratio 0.8 (1.0-1.7) Triglycerides Level 32 mg/dL (0-150) Cholesterol Level 100 mg/dL (0-200) LDL Cholesterol, Calculated 34 mg/dL (0-100) VLDL Cholesterol, Calculated 6 mg/dL (0-40) Non-HDL Cholesterol Calculated 40 mg/dL (0-129) HDL Cholesterol 60 mg/dL (40-60) Cholesterol/HDL Ratio 1.7 Amylase Level 53 U/L (25-115) Lipase 162 U/L (73-393) Influenza Type A Antigen Negative (NEGATIVE) Influenza Type B Antigen Negative (NEGATIVE) White Blood Count 6.4 x10^3/uL (4.0-11.0) Red Blood Count 3.71 x10^6/uL (3.50-5.40) Hemoglobin 12.0 g/dL (12.0-15.5) Hematocrit 36.1 % (36.0-47.0) Mean Corpuscular Volume 97 fL (79-100) Mean Corpuscular Hemoglobin 32 pg (25-35) Mean Corpuscular Hemoglobin Concent 33 g/dL (31-37) Red Cell Distribution Width 14.1 % (11.5-14.5) Platelet Count 123 x10^3/uL (140-400) Neutrophils (%) (Auto) 85 % (31-73) Lymphocytes (%) (Auto) 10 % (24-48) Monocytes (%) (Auto) 4 % (0-9) Eosinophils (%) (Auto) 1 % (0-3) Basophils (%) (Auto) 0 % (0-3) Neutrophils # (Auto) 5.5 x10^3uL (1.8-7.7) Lymphocytes # (Auto) 0.6 x10^3/uL (1.0-4.8) Monocytes # (Auto) 0.3 x10^3/uL (0.0-1.1) Eosinophils # (Auto) 0.1 x10^3/uL (0.0-0.7) Basophils # (Auto) 0.0 x10^3/uL (0.0-0.2) Segmented Neutrophils % 92 % (35-66) Lymphocytes % 4 % (24-48) Monocytes % 3 % (0-10) Eosinophils % 1 % (0-5) Platelet Estimate Decreased (ADEQUATE) Test 01/12/17 12:10 01/12/17 18:10 01/13/17 05:10 01/13/17 06:36 Troponin I Quantitative 0.165 ng/mL (0.000-0.055) 0.092 ng/mL (0.000-0.055) White Blood Count 5.2 x10^3/uL (4.0-11.0) Red Blood Count 3.39 x10^6/uL (3.50-5.40) Hemoglobin 11.1 g/dL (12.0-15.5) Hematocrit 33.9 % (36.0-47.0) Mean Corpuscular Volume 100 fL (79-100) Mean Corpuscular Hemoglobin 33 pg (25-35) Mean Corpuscular Hemoglobin Concent 33 g/dL (31-37) Red Cell Distribution Width 15.2 % (11.5-14.5) Platelet Count 105 x10^3/uL (140-400) Neutrophils (%) (Auto) 73 % (31-73) Lymphocytes (%) (Auto) 18 % (24-48) Monocytes (%) (Auto) 7 % (0-9) Eosinophils (%) (Auto) 2 % (0-3) Basophils (%) (Auto) 1 % (0-3) Neutrophils # (Auto) 3.8 x10^3uL (1.8-7.7) Lymphocytes # (Auto) 0.9 x10^3/uL (1.0-4.8) Monocytes # (Auto) 0.3 x10^3/uL (0.0-1.1) Eosinophils # (Auto) 0.1 x10^3/uL (0.0-0.7) Basophils # (Auto) 0.0 x10^3/uL (0.0-0.2) Sodium Level 141 mmol/L (136-145) Potassium Level 4.4 mmol/L (3.5-5.1) Chloride Level 108 mmol/L (98-107) Carbon Dioxide Level 21 mmol/L (21-32) Anion Gap 12 (6-14) Blood Urea Nitrogen 19 mg/dL (7-20) Creatinine 0.8 mg/dL (0.6-1.0) Estimated GFR (Cockcroft-Gault) 69.6 BUN/Creatinine Ratio 24 (6-20) Glucose Level 49 mg/dL (70-99) Calcium Level 8.8 mg/dL (8.5-10.1) Magnesium Level 2.4 mg/dL (1.8-2.4) Total Bilirubin 1.3 mg/dL (0.2-1.0) Aspartate Amino Transf (AST/SGOT) 496 U/L (15-37) Alanine Aminotransferase (ALT/SGPT) 748 U/L (14-59) Alkaline Phosphatase 135 U/L (46-116) Total Protein 6.6 g/dL (6.4-8.2) Albumin 2.9 g/dL (3.4-5.0) Albumin/Globulin Ratio 0.8 (1.0-1.7) Amylase Level 47 U/L (25-115) Lipase 117 U/L (73-393) Glucose (Fingerstick) 97 mg/dL (70-99) Laboratory Tests Test 01/12/17 18:10 01/13/17 05:10 01/13/17 06:36 Troponin I Quantitative 0.092 ng/mL (0.000-0.055) White Blood Count 5.2 x10^3/uL (4.0-11.0) Red Blood Count 3.39 x10^6/uL (3.50-5.40) Hemoglobin 11.1 g/dL (12.0-15.5) Hematocrit 33.9 % (36.0-47.0) Mean Corpuscular Volume 100 fL (79-100) Mean Corpuscular Hemoglobin 33 pg (25-35) Mean Corpuscular Hemoglobin Concent 33 g/dL (31-37) Red Cell Distribution Width 15.2 % (11.5-14.5) Platelet Count 105 x10^3/uL (140-400) Neutrophils (%) (Auto) 73 % (31-73) Lymphocytes (%) (Auto) 18 % (24-48) Monocytes (%) (Auto) 7 % (0-9) Eosinophils (%) (Auto) 2 % (0-3) Basophils (%) (Auto) 1 % (0-3) Neutrophils # (Auto) 3.8 x10^3uL (1.8-7.7) Lymphocytes # (Auto) 0.9 x10^3/uL (1.0-4.8) Monocytes # (Auto) 0.3 x10^3/uL (0.0-1.1) Eosinophils # (Auto) 0.1 x10^3/uL (0.0-0.7) Basophils # (Auto) 0.0 x10^3/uL (0.0-0.2) Sodium Level 141 mmol/L (136-145) Potassium Level 4.4 mmol/L (3.5-5.1) Chloride Level 108 mmol/L (98-107) Carbon Dioxide Level 21 mmol/L (21-32) Anion Gap 12 (6-14) Blood Urea Nitrogen 19 mg/dL (7-20) Creatinine 0.8 mg/dL (0.6-1.0) Estimated GFR (Cockcroft-Gault) 69.6 BUN/Creatinine Ratio 24 (6-20) Glucose Level 49 mg/dL (70-99) Calcium Level 8.8 mg/dL (8.5-10.1) Magnesium Level 2.4 mg/dL (1.8-2.4) Total Bilirubin 1.3 mg/dL (0.2-1.0) Aspartate Amino Transf (AST/SGOT) 496 U/L (15-37) Alanine Aminotransferase (ALT/SGPT) 748 U/L (14-59) Alkaline Phosphatase 135 U/L (46-116) Total Protein 6.6 g/dL (6.4-8.2) Albumin 2.9 g/dL (3.4-5.0) Albumin/Globulin Ratio 0.8 (1.0-1.7) Amylase Level 47 U/L (25-115) Lipase 117 U/L (73-393) Glucose (Fingerstick) 97 mg/dL (70-99) Medications Active Scripts Medications Dose Route/Sig Max Daily Dose Days Date Category Lisinopril 10 Mg Tablet 10 Mg PO DAILY 11/27/14 Reported Hydrochlorothiazide Tablet (Hydrochlorothiazide) 12.5 Mg Tablet 12.5 Mg PO DAILY 11/27/14 Reported Advil (Ibuprofen) 200 Mg Capsule 200 Mg PO PRN Q4-6HRS PRN 11/27/14 Reported [Aspirin] 325 MG Tablet 81 Mg PO [id number] 07/21/14 Rx Carvedilol 3.125 Mg Tablet 1 Tab PO BID 07/20/14 Reported Atorvastatin Calcium 80 Mg Tablet 1 Tab PO QHS 07/20/14 Reported Impression . IMPRESSION: 1. Abnormal x-ray. 2. Suspect gram-negative, possibly gram-positive pneumonia. 3. Elevated liver chemistries. 4. Fever. 5. Possible sepsis. Plan . POSSIBLE ERCP CONTINUE SAME FOR NOW 1. Continue current antibiotics. 2. Nebulized treatments. 3. GI evaluation for elevated chemistries PARAG SERRANO MD Jan 13, 2017 13:05
--- NOTE | 2017-01-13 13:14 | PDOC ---
Infectious Disease Note Vital Sign Vital Signs Vital Signs Date Time Temp Pulse Resp B/P (MAP) Pulse Ox O2 Delivery O2 Flow Rate FiO2 01/13/17 11:39 Nasal Cannula 2.0 01/13/17 11:00 97.9 68 19 130/61 (84) 89 97.9 Labs Lab Laboratory Tests Test 01/12/17 18:10 01/13/17 05:10 01/13/17 06:36 Troponin I Quantitative 0.092 ng/mL (0.000-0.055) White Blood Count 5.2 x10^3/uL (4.0-11.0) Red Blood Count 3.39 x10^6/uL (3.50-5.40) Hemoglobin 11.1 g/dL (12.0-15.5) Hematocrit 33.9 % (36.0-47.0) Mean Corpuscular Volume 100 fL (79-100) Mean Corpuscular Hemoglobin 33 pg (25-35) Mean Corpuscular Hemoglobin Concent 33 g/dL (31-37) Red Cell Distribution Width 15.2 % (11.5-14.5) Platelet Count 105 x10^3/uL (140-400) Neutrophils (%) (Auto) 73 % (31-73) Lymphocytes (%) (Auto) 18 % (24-48) Monocytes (%) (Auto) 7 % (0-9) Eosinophils (%) (Auto) 2 % (0-3) Basophils (%) (Auto) 1 % (0-3) Neutrophils # (Auto) 3.8 x10^3uL (1.8-7.7) Lymphocytes # (Auto) 0.9 x10^3/uL (1.0-4.8) Monocytes # (Auto) 0.3 x10^3/uL (0.0-1.1) Eosinophils # (Auto) 0.1 x10^3/uL (0.0-0.7) Basophils # (Auto) 0.0 x10^3/uL (0.0-0.2) Sodium Level 141 mmol/L (136-145) Potassium Level 4.4 mmol/L (3.5-5.1) Chloride Level 108 mmol/L (98-107) Carbon Dioxide Level 21 mmol/L (21-32) Anion Gap 12 (6-14) Blood Urea Nitrogen 19 mg/dL (7-20) Creatinine 0.8 mg/dL (0.6-1.0) Estimated GFR (Cockcroft-Gault) 69.6 BUN/Creatinine Ratio 24 (6-20) Glucose Level 49 mg/dL (70-99) Calcium Level 8.8 mg/dL (8.5-10.1) Magnesium Level 2.4 mg/dL (1.8-2.4) Total Bilirubin 1.3 mg/dL (0.2-1.0) Aspartate Amino Transf (AST/SGOT) 496 U/L (15-37) Alanine Aminotransferase (ALT/SGPT) 748 U/L (14-59) Alkaline Phosphatase 135 U/L (46-116) Total Protein 6.6 g/dL (6.4-8.2) Albumin 2.9 g/dL (3.4-5.0) Albumin/Globulin Ratio 0.8 (1.0-1.7) Amylase Level 47 U/L (25-115) Lipase 117 U/L (73-393) Glucose (Fingerstick) 97 mg/dL (70-99) Objective Assessment GNR sepsis, POA Transaminitis w/ dilated CBD. H/o known cholelithiasis Hypoxia w/ infiltrate vs pulmonary edema CKD CAD Plan Plan of Care Clinically improving, Continue Rocephin for now Await GNR ID/susceptibilities f/u MRCP report D/w family Thank you [phone] Attending Co-Sign The patient was seen and interviewed as well as examined at the bedside. The chart was reviewed. The case was discussed. Agree with the plan of care. Ascending cholangitis KAREN NEAL APRN Jan 13, 2017 13:14 ELYSE LUKE MD Jan 13, 2017 16:50
[2017-01-13 14:48] VITALS: BP 154/61
--- NOTE | 2017-01-13 14:49 | CARD ---
APPROVED REPORT EXAM: Two-dimensional and M-mode echocardiogram with Doppler and color Doppler. Other Information Quality : GoodHR: 90bpm Rhythm : NSR INDICATION Elevated Troponin 2D DIMENSIONS Left Atrium(2D)4.3 (1.6-4.0cm)IVSd1.1 (0.7-1.1cm) Aortic Root(2D)3.0 (2.0-3.7cm)LVDd4.9 (3.9-5.9cm) LVOT Diameter2.6 (1.8-2.4cm)PWd1.0 (0.7-1.1cm) LA Xebhac01 (18-58mL)LVDs4.0 (2.5-4.0cm) FS (%) 18.7 %SV43.4 ml LVEF(%)38.6 (>50%)CO5.4 L/min M-Mode DIMENSIONS Aortic Cusp Exc1.87 (1.5-2.0cm) Aortic Valve AoV Peak Maximo.148.8cm/sAoV VTI32.8cm AO Peak GR.8.9mmHgLVOT VTI 22.67cm AO Mean GR.5mmHgAI P 1/2 [id number] Mitral Valve MV E Gncwxdph350.6cm/sMV E Peak Gr.7mmHg MV DECEL [id number] A Otkupdkn47.3cm/s MV E Mean Gr.3mmHgE/A Ratio1.1 MV A Xglulfsf75xo TDI Lateral E' P. V7.53cm/sMedial E' P. V11.01cm/s E/Lateral E'14.4E/Medial E'9.9 Pulmonary Valve PV Peak Dubnadgu218.9cm/s Tricuspid Valve TR P. Fbvxkrlv008gj/sRAP XEJBVIMK05fcEg TR Peak Gr.99syUnDSKE77yeCr LEFT VENTRICLE The left ventricle is normal size. There is normal left ventricular wall thickness. The left ventricu lar systolic function is normal and the ejection fraction is within normal range. EF 55% There is nor mal LV segmental wall motion. Tissue Doppler imaging reveals moderate left ventricular diastolic dysf unction. RIGHT VENTRICLE The right ventricle is mildly dilated. There is normal right ventricular wall thickness. The right ve ntricular systolic function is normal. ATRIA The left atrium is mildly dilated. The right atrium size is normal. The interatrial septum is intact with no evidence for an atrial septal defect or patent foramen ovale as noted on 2-D or Doppler imagi ng. AORTIC VALVE Not well visualized. Doppler and Color Flow revealed mild aortic regurgitation. There is no significa nt aortic valvular stenosis. There is no aortic valvular vegetation. MITRAL VALVE The mitral valve is normal in structure and function. There is no evidence of mitral valve prolapse. There is no mitral valve stenosis. Doppler and Color-flow revealed mild mitral regurgitation. TRICUSPID VALVE The tricuspid valve is normal in structure and function. Doppler and Color Flow revealed mild tricusp id regurgitation. There is no tricuspid valve prolapse or vegetation. There is no tricuspid valve krysatl nosis. PULMONIC VALVE Doppler and Color Flow revealed no pulmonic valvular regurgitation. There is no pulmonic valvular krystal nosis. GREAT VESSELS The aortic root is normal in size. The IVC is normal in size and collapses >50% with inspiration. PERICARDIAL EFFUSION There is no pleural effusion. There is no evidence of significant pericardial effusion. Critical Notification Critical Value: No <Conclusion> The left ventricular systolic function is normal and the ejection fraction is within normal range. EF 55% There is normal LV segmental wall motion. Doppler and Color Flow revealed mild aortic regurgitation.
--- NOTE | 2017-01-13 18:00 | RAD ---
MRI ABDOMEN W/O CONTRAST: MRCP Clinical Indication: Dilated Cbd And Transaminitis, Chronic Abdomen Pain, Increase Liver Enzymes Comparison: Abdominal ultrasound dated 01/12/2017. Technique: Multiplanar multiple pulse sequence imaging of the abdomen was performed, including T2 thin slab images through the biliary tree, without contrast. 3-D volume rendering reconstructions performed to better evaluate the biliary tree. Findings: Patient had difficulty following breathing instructions due to language barrier and issues with understanding instructions. Mildly dilated common bile duct measuring up to 0.9 cm. Common hepatic duct, common bile duct and visualized portions of the pancreatic duct are patent, without intraluminal filling defect or acute truncation. The liver, adrenals, spleen and pancreas are included in most sequences and appear normal. Multiple simple appearing renal cysts, largest of which is in the right interpolar region measuring 3.1 x 3.6 cm. Infrarenal abdominal aortic ectasia measuring up to 2.8 cm. Tortuous descending thoracic aorta. Mild cardiomegaly. IMPRESSION: Patient motion somewhat limits evaluation. Mildly dilated common bile duct without evidence of filling defect or acute truncation.
[2017-01-13 19:00] VITALS: BP 124/66
[2017-01-13 23:00] VITALS: BP 113/63
--- NOTE | 2017-01-14 01:09 | CONS ---
DATE OF CONSULTATION: 01/13/2017 REFERRING PHYSICIAN: Dr. Bell REASON FOR CONSULTATION: Positive blood cultures. HISTORY OF PRESENT ILLNESS: The patient is a 76-year-old [place] female who was non-Swedish speaking. According to her qxrzzjki-la-hdr, the patient had not been feeling well over the past 3 days. She was fatigue, complained of nausea, dry heaves and stomach pain. She took ____ with some relief as well as Pepto-Bismol. Symptoms progressively worsened and she felt like she could not breathe and spiked a fever of 102.1. On arrival to the ER, she was found to have elevated liver function tests with dilated common bile duct. She recently had an MRCP done and report is still pending. The patient has a history of known cholelithiasis and was scheduled to have her gallbladder removed when she had changed her mind. Over the past 6 years since that time, she experiences abdominal cramping off and on. Her weight has been stable. A chest CT scan revealed peribronchial vascular ground-glass opacities worse in the right lower lobe and lingula. Findings may relate to edema or atelectasis, though infectious process cannot be excluded. She was treated with Rocephin and azithromycin for pneumonia. She is requiring 2 liters of supplemental oxygen. Blood cultures have now returned with gram-negative rods in 1/4 bottles. Hence, ID consult. She is ambulatory with a walker. She has not been hospitalized within the last 2 years nor needed antibiotics within the last 6 months. The patient is feeling hungry and is wanting to eat. The patient is feeling better. She is breathing with less work of effort. Denies cough or chest discomfort. Denies headache, nasal/sinus congestion or sore throat. No further nausea, dry heaves or abdominal pain voiced. She has a history of stroke and often times will hold her urine to avoid having to get up. Her urine lately has had a strong foul odor. PAST MEDICAL HISTORY: Cholelithiasis, cerebrovascular accident, heart attack, aneurysm, coronary artery disease, hypercholesterolemia, hypertension, gastroesophageal reflux disease, incontinent, anxiety, osteoarthritis. PAST SURGICAL HISTORY: Coronary artery bypass graft, meniscus repair on left knee. FAMILY HISTORY: Positive for hypertension. SOCIAL HISTORY: The patient is and lives at home. ALLERGIES: No known drug allergies. MEDICATIONS: Rocephin, onetime dose of azithromycin. Other medications are available and have been reviewed on the MAY. VACCINATIONS: Influenza vaccine documented this season. REVIEW OF SYSTEMS: Per HPI, otherwise all other review of systems is negative. PHYSICAL EXAMINATION: GENERAL: Serbian female, lying down in no apparent distress. VITAL SIGNS: Temperature is 97.9, blood pressure 130/61, heart rate 68, respiratory rate 19, pulse oximetry is 89% on 2 L nasal cannula. Weight is 164 pounds. BMI 29. HEENT: Pupils are equally round. Normal conjunctivae, nonicterus. Oral mucosa is pink and moist. Dentures in place. NECK: Supple. LUNGS: Clear to auscultation. Nonlabored. HEART: Normal S1 and S2. No murmur appreciated. ABDOMEN: Obese, bowel sounds active, soft, nontender, no rebound. EXTREMITIES: No gross edema or cyanosis. SKIN: Without rash. NEUROLOGIC: Alert and follows commands. Oriented per family. LABORATORY DATA: Today's WBC 5.2; hemoglobin 11.1; platelet count 105,000. Electrolytes are unremarkable. Creatinine 0.8, BUN 19, lactic acid 1.2. Total bilirubin 1.3, AST 496, ALT 748. Troponin 0.092. Albumin 2.9, lipase 162. Urinalysis unremarkable for infection. Urine culture grew coagulase-negative Staphylococcus species. Influenza screen negative. Blood cultures positive for gram-negative rods in 1/4 bottles. MRCP report pending. Chest CT, per HPI. Abdominal ultrasound revealed hepatic steatosis; cholelithiasis without sonographic evidence of acute cholecystitis; prominent common bile duct. No obstructive stone or obvious mass seen. Chest x-ray showed possible small bilateral pleural effusions and bilateral perihilar and basilar heterogeneous airspace opacities most likely related to pulmonary edema. BNP 553. IMPRESSION: 1. Gram-negative gen sepsis present on admission. 2. Transaminitis with dilated common bile duct. 3. Hypoxia with infiltrate versus pulmonary edema. 4. Hypertension. 5. Coronary artery disease. PLAN: The patient is clinically improving. Continue the Rocephin. Await GNR identification and susceptibilities. We will follow up on MRCP report. Discussed with family. Thank you, Dr. Bell, for asking us to participate in this patient's care. Should you have further questions or concerns, please call. ELYSE LUKE MD DR: Ally JOB#: [id number] / [id number]
[2017-01-14 03:04] VITALS: BP 122/68
[2017-01-14 05:44] LABS: BASO % 1 % (0-3); EOS % 4 % (0-3); HEMATOCRIT 32.2 % (36.0-47.0); HEMOGLOBIN 10.7 g/dL (12.0-15.5); LYMPH # 1.9 x10^3/uL (1.0-4.8); LYMPH % 39 % (24-48); MEAN CORPUSCULAR HEMOGLOBIN 33 pg (25-35); MEAN CORPUSCULAR HGB CONC 33 g/dL (31-37); MEAN CORPUSCULAR VOLUME 99 fL (79-100); MONO % 10 % (0-9); NEUT % 46 % (31-73); PLATELET COUNT 107 x10^3/uL (140-400); RED BLOOD COUNT 3.25 x10^6/uL (3.50-5.40); RED CELL DISTRIBUTION WIDTH 14.8 % (11.5-14.5)
[2017-01-14 06:21] LABS: ALBUMIN 2.6 g/dL (3.4-5.0); ALBUMIN/GLOBULIN RATIO 0.7 (1.0-1.7); CALCIUM 8.3 mg/dL (8.5-10.1); CREATININE 0.9 mg/dL (0.6-1.0); GFR 60.7; POTASSIUM 3.8 mmol/L (3.5-5.1); TOTAL BILIRUBIN 0.4 mg/dL (0.2-1.0); TOTAL PROTEIN 6.3 g/dL (6.4-8.2)
[2017-01-14 07:00] VITALS: BP 153/68
[2017-01-14] MEDS: PANTOPRAZOLE 40 MG TABLET.DR. PO SCH (08:24)
[2017-01-14] MEDS: IV NORMAL SALINE 1000ML BAG 1,000 ML IV SCH (08:24)
[2017-01-14] MEDS: LISINOPRIL 10 MG TABLET PO SCH (08:24)
[2017-01-14] MEDS: CARVEDILOL 3.125 MG TABLET. PO SCH ×2 (08:25→16:53)
[2017-01-14] MEDS: ASPIRIN ENTERIC COATED 81 MG TABLET.DR. PO SCH (08:25)
[2017-01-14] MEDS: IPRATRPIUM/ALBUTEROL 0.5/2.5MG 3 ML NEBU. NEB SCH ×4 (09:19→19:40)
--- NOTE | 2017-01-14 10:25 | PDOC ---
PROGRESS NOTES Subjective Subjective feels better, anxious to go home Objective Objective Vital Signs Date Time Temp Pulse Resp B/P (MAP) Pulse Ox O2 Delivery O2 Flow Rate FiO2 01/14/17 09:19 96 Nasal Cannula 2.0 01/14/17 08:25 65 153/68 01/14/17 07:00 97.7 18 97.7 Physical Exam Abdomen: No tenderness Heart: Regular rate, Normal S1, Normal S2, Other (2/6 systolic murmur ) Extremities: No edema, Normal pulses General: Alert, Oriented X3, Cooperative HEENT: Atraumatic, Mucous membr. moist/pink Lungs: Clear to auscultation, Other (diminished bases ) MUSCULOSKELETAL: Other (left side strength diminished) Neuro: Normal speech, Sensation intact Psych/Mental Status: Mental status NL, Mood NL Skin: No significant lesion Diagnosis Problem List Problems Medical Problems: (1) Community acquired pneumonia Status: Acute (2) Hypoxia Status: Acute Assessment Assessment Assessment IMP: GNR sepsis, POA Transaminitis w/ dilated CBD. H/o known cholelithiasis Hypoxia w/ infiltrate vs pulmonary edema CKD CAD Plan Plan of Care: d/c iv fluids advance diet. d/c home tomorrow. lft trending down MRCP-ve Clinically improving, Continue Rocephin for now Await GNR ID/susceptibilities Problems: Plan Plan of Care Problems Medical Problems: (1) Community acquired pneumonia Status: Acute (2) Hypoxia Status: Acute Comment Review of Relevant I have reviewed the following items rabia (where applicable) has been applied. Labs Laboratory Tests Test 01/14/17 05:10 White Blood Count 5.0 x10^3/uL (4.0-11.0) Red Blood Count 3.25 x10^6/uL (3.50-5.40) Hemoglobin 10.7 g/dL (12.0-15.5) Hematocrit 32.2 % (36.0-47.0) Mean Corpuscular Volume 99 fL (79-100) Mean Corpuscular Hemoglobin 33 pg (25-35) Mean Corpuscular Hemoglobin Concent 33 g/dL (31-37) Red Cell Distribution Width 14.8 % (11.5-14.5) Platelet Count 107 x10^3/uL (140-400) Neutrophils (%) (Auto) 46 % (31-73) Lymphocytes (%) (Auto) 39 % (24-48) Monocytes (%) (Auto) 10 % (0-9) Eosinophils (%) (Auto) 4 % (0-3) Basophils (%) (Auto) 1 % (0-3) Neutrophils # (Auto) 2.3 x10^3uL (1.8-7.7) Lymphocytes # (Auto) 1.9 x10^3/uL (1.0-4.8) Monocytes # (Auto) 0.5 x10^3/uL (0.0-1.1) Eosinophils # (Auto) 0.2 x10^3/uL (0.0-0.7) Basophils # (Auto) 0.0 x10^3/uL (0.0-0.2) Sodium Level 143 mmol/L (136-145) Potassium Level 3.8 mmol/L (3.5-5.1) Chloride Level 112 mmol/L (98-107) Carbon Dioxide Level 26 mmol/L (21-32) Anion Gap 5 (6-14) Blood Urea Nitrogen 13 mg/dL (7-20) Creatinine 0.9 mg/dL (0.6-1.0) Estimated GFR (Cockcroft-Gault) 60.7 BUN/Creatinine Ratio 14 (6-20) Glucose Level 94 mg/dL (70-99) Calcium Level 8.3 mg/dL (8.5-10.1) Total Bilirubin 0.4 mg/dL (0.2-1.0) Aspartate Amino Transf (AST/SGOT) 159 U/L (15-37) Alanine Aminotransferase (ALT/SGPT) 408 U/L (14-59) Alkaline Phosphatase 123 U/L (46-116) Total Protein 6.3 g/dL (6.4-8.2) Albumin 2.6 g/dL (3.4-5.0) Albumin/Globulin Ratio 0.7 (1.0-1.7) Microbiology 01/12/17 Blood Culture - Preliminary, Resulted NO GROWTH AFTER 1 DAY 01/12/17 Urine Culture - Preliminary, Resulted 01/12/17 Urine Culture Result 1 (MIKE) - Preliminary, Resulted Vitals/I & O Vital Sign - Last 24 Hours 01/13/17 01/13/17 01/13/17 01/13/17 11:00 11:39 14:48 15:40 Temp 97.9 98.1 97.9 98.1 Pulse 68 74 Resp 19 19 B/P (MAP) 130/61 (84) 154/61 (92) Pulse Ox 89 95 97 O2 Delivery Room Air Nasal Cannula Nasal Cannula Nasal Cannula O2 Flow Rate 2.0 2.0 01/13/17 01/13/17 01/13/17 01/13/17 17:21 19:00 19:10 20:12 Temp 98.2 98.2 Pulse 74 63 Resp 20 B/P (MAP) 154/61 124/66 (85) Pulse Ox 94 96 O2 Delivery Nasal Cannula Nasal Cannula Nasal Cannula O2 Flow Rate 2.0 2.0 01/13/17 01/14/17 01/14/17 01/14/17 23:00 03:04 07:00 08:24 Temp 98.2 98.1 97.7 98.2 98.1 97.7 Pulse 68 66 65 65 Resp 20 20 18 B/P (MAP) 113/63 (80) 122/68 (86) 153/68 (96) 153/68 Pulse Ox 92 97 98 O2 Delivery Nasal Cannula Nasal Cannula Nasal Cannula O2 Flow Rate 2.0 01/14/17 01/14/17 08:25 09:19 Pulse 65 B/P (MAP) 153/68 Pulse Ox 96 O2 Delivery Nasal Cannula O2 Flow Rate 2.0 EDMAR CARNEY MD Jan 14, 2017 10:25
[2017-01-14 10:44] LABS: ALBUMIN 2.6 g/dL (3.4-5.0); DIRECT BILIRUBIN 0.2 mg/dL (0.0-0.2); TOTAL BILIRUBIN 0.4 mg/dL (0.2-1.0); TOTAL PROTEIN 6.3 g/dL (6.4-8.2)
[2017-01-14 11:00] VITALS: BP 132/63
--- NOTE | 2017-01-14 11:06 | PDOC ---
Infectious Disease Note Subjective Subjective pt feeling ok ROS ROS GEN: Denies fevers, chills, sweats HEENT: Denies blurred vision, sore throat CV: Denies chest pain RESP: Denies shortness of air, cough GI: Denies n/v/d NEURO: Denies confusion, dizziness MSK: Denies weakness, joint pain/swelling Vital Sign Vital Signs Vital Signs Date Time Temp Pulse Resp B/P (MAP) Pulse Ox O2 Delivery O2 Flow Rate FiO2 01/14/17 09:19 96 Nasal Cannula 2.0 01/14/17 08:25 65 153/68 01/14/17 07:00 97.7 18 97.7 Physical Exam PHYSICAL EXAM GENERAL: NAD, Alert HEENT: PERRL, OC/OP NECK: Supple, no JVD, no LN LUNGS: Clear HEART: S1S2, no gallop, no murmur ABD: Soft, NT, no organomegaly, no rebound EXT: No edema, no cyanosis SOAP INSPECTOR: Alert, oriented x 3, no focal neurologic deficit SKIN: No rash IV: ok Labs Lab Laboratory Tests Test 01/14/17 05:10 White Blood Count 5.0 x10^3/uL (4.0-11.0) Red Blood Count 3.25 x10^6/uL (3.50-5.40) Hemoglobin 10.7 g/dL (12.0-15.5) Hematocrit 32.2 % (36.0-47.0) Mean Corpuscular Volume 99 fL (79-100) Mean Corpuscular Hemoglobin 33 pg (25-35) Mean Corpuscular Hemoglobin Concent 33 g/dL (31-37) Red Cell Distribution Width 14.8 % (11.5-14.5) Platelet Count 107 x10^3/uL (140-400) Neutrophils (%) (Auto) 46 % (31-73) Lymphocytes (%) (Auto) 39 % (24-48) Monocytes (%) (Auto) 10 % (0-9) Eosinophils (%) (Auto) 4 % (0-3) Basophils (%) (Auto) 1 % (0-3) Neutrophils # (Auto) 2.3 x10^3uL (1.8-7.7) Lymphocytes # (Auto) 1.9 x10^3/uL (1.0-4.8) Monocytes # (Auto) 0.5 x10^3/uL (0.0-1.1) Eosinophils # (Auto) 0.2 x10^3/uL (0.0-0.7) Basophils # (Auto) 0.0 x10^3/uL (0.0-0.2) Sodium Level 143 mmol/L (136-145) Potassium Level 3.8 mmol/L (3.5-5.1) Chloride Level 112 mmol/L (98-107) Carbon Dioxide Level 26 mmol/L (21-32) Anion Gap 5 (6-14) Blood Urea Nitrogen 13 mg/dL (7-20) Creatinine 0.9 mg/dL (0.6-1.0) Estimated GFR (Cockcroft-Gault) 60.7 BUN/Creatinine Ratio 14 (6-20) Glucose Level 94 mg/dL (70-99) Calcium Level 8.3 mg/dL (8.5-10.1) Total Bilirubin 0.4 mg/dL (0.2-1.0) Direct Bilirubin 0.2 mg/dL (0.0-0.2) Aspartate Amino Transf (AST/SGOT) 161 U/L (15-37) Alanine Aminotransferase (ALT/SGPT) 413 U/L (14-59) Alkaline Phosphatase 124 U/L (46-116) Total Protein 6.3 g/dL (6.4-8.2) Albumin 2.6 g/dL (3.4-5.0) Albumin/Globulin Ratio 0.7 (1.0-1.7) Objective Assessment GNR sepsis, POA Transaminitis w/ dilated CBD. H/o known cholelithiasis Hypoxia w/ infiltrate vs pulmonary edema CKD CAD Plan Plan of Care Clinically improving, Continue Rocephin for now Await GNR ID/susceptibilities f/u MRCP report D/w family ELYSE LUKE MD Jan 14, 2017 11:06
--- NOTE | 2017-01-14 11:19 | PDOC ---
PULMONARY PROGRESS NOTES Subjective PT NOT MORE SOA Vitals Vital Signs Date Time Temp Pulse Resp B/P (MAP) Pulse Ox O2 Delivery O2 Flow Rate FiO2 01/14/17 09:19 96 Nasal Cannula 2.0 01/14/17 08:25 65 153/68 01/14/17 07:00 97.7 18 97.7 Lungs: Crackles Cardiovascular: S1, S2 Abdomen: Soft Neuro Exam: Alert Extremities: No Edema Skin: Warm Labs Laboratory Tests Test 01/12/17 12:10 01/12/17 18:10 01/13/17 05:10 01/13/17 06:36 Troponin I Quantitative 0.165 ng/mL (0.000-0.055) 0.092 ng/mL (0.000-0.055) White Blood Count 5.2 x10^3/uL (4.0-11.0) Red Blood Count 3.39 x10^6/uL (3.50-5.40) Hemoglobin 11.1 g/dL (12.0-15.5) Hematocrit 33.9 % (36.0-47.0) Mean Corpuscular Volume 100 fL (79-100) Mean Corpuscular Hemoglobin 33 pg (25-35) Mean Corpuscular Hemoglobin Concent 33 g/dL (31-37) Red Cell Distribution Width 15.2 % (11.5-14.5) Platelet Count 105 x10^3/uL (140-400) Neutrophils (%) (Auto) 73 % (31-73) Lymphocytes (%) (Auto) 18 % (24-48) Monocytes (%) (Auto) 7 % (0-9) Eosinophils (%) (Auto) 2 % (0-3) Basophils (%) (Auto) 1 % (0-3) Neutrophils # (Auto) 3.8 x10^3uL (1.8-7.7) Lymphocytes # (Auto) 0.9 x10^3/uL (1.0-4.8) Monocytes # (Auto) 0.3 x10^3/uL (0.0-1.1) Eosinophils # (Auto) 0.1 x10^3/uL (0.0-0.7) Basophils # (Auto) 0.0 x10^3/uL (0.0-0.2) Sodium Level 141 mmol/L (136-145) Potassium Level 4.4 mmol/L (3.5-5.1) Chloride Level 108 mmol/L (98-107) Carbon Dioxide Level 21 mmol/L (21-32) Anion Gap 12 (6-14) Blood Urea Nitrogen 19 mg/dL (7-20) Creatinine 0.8 mg/dL (0.6-1.0) Estimated GFR (Cockcroft-Gault) 69.6 BUN/Creatinine Ratio 24 (6-20) Glucose Level 49 mg/dL (70-99) Calcium Level 8.8 mg/dL (8.5-10.1) Magnesium Level 2.4 mg/dL (1.8-2.4) Total Bilirubin 1.3 mg/dL (0.2-1.0) Aspartate Amino Transf (AST/SGOT) 496 U/L (15-37) Alanine Aminotransferase (ALT/SGPT) 748 U/L (14-59) Alkaline Phosphatase 135 U/L (46-116) Total Protein 6.6 g/dL (6.4-8.2) Albumin 2.9 g/dL (3.4-5.0) Albumin/Globulin Ratio 0.8 (1.0-1.7) Amylase Level 47 U/L (25-115) Lipase 117 U/L (73-393) Glucose (Fingerstick) 97 mg/dL (70-99) Test 01/14/17 05:10 White Blood Count 5.0 x10^3/uL (4.0-11.0) Red Blood Count 3.25 x10^6/uL (3.50-5.40) Hemoglobin 10.7 g/dL (12.0-15.5) Hematocrit 32.2 % (36.0-47.0) Mean Corpuscular Volume 99 fL (79-100) Mean Corpuscular Hemoglobin 33 pg (25-35) Mean Corpuscular Hemoglobin Concent 33 g/dL (31-37) Red Cell Distribution Width 14.8 % (11.5-14.5) Platelet Count 107 x10^3/uL (140-400) Neutrophils (%) (Auto) 46 % (31-73) Lymphocytes (%) (Auto) 39 % (24-48) Monocytes (%) (Auto) 10 % (0-9) Eosinophils (%) (Auto) 4 % (0-3) Basophils (%) (Auto) 1 % (0-3) Neutrophils # (Auto) 2.3 x10^3uL (1.8-7.7) Lymphocytes # (Auto) 1.9 x10^3/uL (1.0-4.8) Monocytes # (Auto) 0.5 x10^3/uL (0.0-1.1) Eosinophils # (Auto) 0.2 x10^3/uL (0.0-0.7) Basophils # (Auto) 0.0 x10^3/uL (0.0-0.2) Sodium Level 143 mmol/L (136-145) Potassium Level 3.8 mmol/L (3.5-5.1) Chloride Level 112 mmol/L (98-107) Carbon Dioxide Level 26 mmol/L (21-32) Anion Gap 5 (6-14) Blood Urea Nitrogen 13 mg/dL (7-20) Creatinine 0.9 mg/dL (0.6-1.0) Estimated GFR (Cockcroft-Gault) 60.7 BUN/Creatinine Ratio 14 (6-20) Glucose Level 94 mg/dL (70-99) Calcium Level 8.3 mg/dL (8.5-10.1) Total Bilirubin 0.4 mg/dL (0.2-1.0) Direct Bilirubin 0.2 mg/dL (0.0-0.2) Aspartate Amino Transf (AST/SGOT) 161 U/L (15-37) Alanine Aminotransferase (ALT/SGPT) 413 U/L (14-59) Alkaline Phosphatase 124 U/L (46-116) Total Protein 6.3 g/dL (6.4-8.2) Albumin 2.6 g/dL (3.4-5.0) Albumin/Globulin Ratio 0.7 (1.0-1.7) Laboratory Tests Test 01/14/17 05:10 White Blood Count 5.0 x10^3/uL (4.0-11.0) Red Blood Count 3.25 x10^6/uL (3.50-5.40) Hemoglobin 10.7 g/dL (12.0-15.5) Hematocrit 32.2 % (36.0-47.0) Mean Corpuscular Volume 99 fL (79-100) Mean Corpuscular Hemoglobin 33 pg (25-35) Mean Corpuscular Hemoglobin Concent 33 g/dL (31-37) Red Cell Distribution Width 14.8 % (11.5-14.5) Platelet Count 107 x10^3/uL (140-400) Neutrophils (%) (Auto) 46 % (31-73) Lymphocytes (%) (Auto) 39 % (24-48) Monocytes (%) (Auto) 10 % (0-9) Eosinophils (%) (Auto) 4 % (0-3) Basophils (%) (Auto) 1 % (0-3) Neutrophils # (Auto) 2.3 x10^3uL (1.8-7.7) Lymphocytes # (Auto) 1.9 x10^3/uL (1.0-4.8) Monocytes # (Auto) 0.5 x10^3/uL (0.0-1.1) Eosinophils # (Auto) 0.2 x10^3/uL (0.0-0.7) Basophils # (Auto) 0.0 x10^3/uL (0.0-0.2) Sodium Level 143 mmol/L (136-145) Potassium Level 3.8 mmol/L (3.5-5.1) Chloride Level 112 mmol/L (98-107) Carbon Dioxide Level 26 mmol/L (21-32) Anion Gap 5 (6-14) Blood Urea Nitrogen 13 mg/dL (7-20) Creatinine 0.9 mg/dL (0.6-1.0) Estimated GFR (Cockcroft-Gault) 60.7 BUN/Creatinine Ratio 14 (6-20) Glucose Level 94 mg/dL (70-99) Calcium Level 8.3 mg/dL (8.5-10.1) Total Bilirubin 0.4 mg/dL (0.2-1.0) Direct Bilirubin 0.2 mg/dL (0.0-0.2) Aspartate Amino Transf (AST/SGOT) 161 U/L (15-37) Alanine Aminotransferase (ALT/SGPT) 413 U/L (14-59) Alkaline Phosphatase 124 U/L (46-116) Total Protein 6.3 g/dL (6.4-8.2) Albumin 2.6 g/dL (3.4-5.0) Albumin/Globulin Ratio 0.7 (1.0-1.7) Medications Active Scripts Medications Dose Route/Sig Max Daily Dose Days Date Category Lisinopril 10 Mg Tablet 10 Mg PO DAILY 11/27/14 Reported Hydrochlorothiazide Tablet (Hydrochlorothiazide) 12.5 Mg Tablet 12.5 Mg PO DAILY 11/27/14 Reported Advil (Ibuprofen) 200 Mg Capsule 200 Mg PO PRN Q4-6HRS PRN 11/27/14 Reported [Aspirin] 325 MG Tablet 81 Mg PO [id number] 07/21/14 Rx Carvedilol 3.125 Mg Tablet 1 Tab PO BID 07/20/14 Reported Atorvastatin Calcium 80 Mg Tablet 1 Tab PO QHS 07/20/14 Reported Impression . IMPRESSION: 1. Abnormal x-ray. 2. Suspect gram-negative, possibly gram-positive pneumonia. 3. Elevated liver chemistries. 4. Fever. 5. Possible sepsis. Plan . RESP STATUS COMPENSATED CONTINUE SAME FOR NOW 1. Continue current antibiotics. 2. Nebulized treatments. 3. GI evaluation for elevated chemistries MRCP IMPRESSION: Patient motion somewhat limits evaluation. Mildly dilated common bile duct without evidence of filling defect or acute truncation. PARAG SERRANO MD Jan 14, 2017 11:19
--- NOTE | 2017-01-14 12:53 | CONS ---
DATE OF CONSULTATION: 01/12/2017 REASON FOR CONSULTATION: Abnormal liver function tests, dilated common bile duct. HISTORY OF PRESENT ILLNESS: A 76-year-old [place] female with past medical history significant for hyperlipidemia, hypertension, history of CVA, history of bypass surgery, was admitted to [facility] with a 2-day history of malaise, nausea, vomiting, and dry heaves. Subsequent evaluation has revealed fever as well as elevated liver function tests, cholelithiasis and partially dilated common bile duct. GI consultation is requested, further history is limited due to language impairment, but additional studies are recommended. PAST MEDICAL HISTORY: History of CVA, history of hypertension, hyperlipidemia, status post bypass surgery. ALLERGIES: None. MEDICATIONS: Ceftriaxone, pantoprazole, aspirin, lisinopril, carvedilol, ondansetron. FAMILY AND SOCIAL HISTORY: She is retired. Does not drink or smoke. FAMILY HISTORY: Noncontributory. REVIEW OF SYSTEMS: Per above. PHYSICAL EXAMINATION: VITAL SIGNS: Temperature is 97.5, pulse 90, respiration is 18, blood pressure is 124/84. HEENT: Normocephalic and atraumatic head. Pupils and extraocular movements not tested. Sclerae anicteric. NECK: Supple. LUNGS: Clear. CARDIOVASCULAR: Reveals S1, S2 without S3, S4 or appreciable murmur. ABDOMEN: Soft abdomen, normal bowel sounds, without appreciable hepatosplenomegaly. EXTREMITIES: Reveals no cyanosis, clubbing or edema. LABORATORY DATA: Hemoglobin is 12, hematocrit 36.1, white count 6.4, platelet count is 123,000. Chemistry: Sodium of 138, potassium 4.0, chloride 101, bicarbonate 25, total protein 7.5, albumin 3.6, calcium 9.5, glucose 132, BUN 26, creatinine 0.9, total bilirubin 2.7, alkaline phosphatase 170, ALT of 1239, AST of 1136, elevated troponin was also noted. IMAGING: Ultrasound reveals cholelithiasis, hepatic steatosis, prominent common bile duct up to 0.9 cm. IMPRESSION: Transaminitis with cholelithiasis. Differential includes ischemic hepatitis, passive congestion of the liver, ascending cholangitis, retained common duct stones, acute viral hepatitis; therefore; recommend viral serologies, MRCP, serial liver function tests, consider ERCP, pending the patient's clinical course. SHIN BRIGHT MD DR: Namrata JOB#: [id number] / [id number] KM Cooper MD
--- NOTE | 2017-01-14 13:56 | PDOC ---
Subjective: Subjective: D/w daughter who translates. No abd pain. Eating okay. Objective: Vital Signs: Vital Signs Date Time Temp Pulse Resp B/P (MAP) Pulse Ox O2 Delivery O2 Flow Rate FiO2 01/14/17 12:25 97 Nasal Cannula 2.0 01/14/17 11:00 97.7 63 18 132/63 (86) 97.7 Labs: Laboratory Tests Test 01/14/17 05:10 White Blood Count 5.0 x10^3/uL Red Blood Count 3.25 x10^6/uL Hemoglobin 10.7 g/dL Hematocrit 32.2 % Mean Corpuscular Volume 99 fL Mean Corpuscular Hemoglobin 33 pg Mean Corpuscular Hemoglobin Concent 33 g/dL Red Cell Distribution Width 14.8 % Platelet Count 107 x10^3/uL Neutrophils (%) (Auto) 46 % Lymphocytes (%) (Auto) 39 % Monocytes (%) (Auto) 10 % Eosinophils (%) (Auto) 4 % Basophils (%) (Auto) 1 % Neutrophils # (Auto) 2.3 x10^3uL Lymphocytes # (Auto) 1.9 x10^3/uL Monocytes # (Auto) 0.5 x10^3/uL Eosinophils # (Auto) 0.2 x10^3/uL Basophils # (Auto) 0.0 x10^3/uL Sodium Level 143 mmol/L Potassium Level 3.8 mmol/L Chloride Level 112 mmol/L Carbon Dioxide Level 26 mmol/L Anion Gap 5 Blood Urea Nitrogen 13 mg/dL Creatinine 0.9 mg/dL Estimated GFR (Cockcroft-Gault) 60.7 BUN/Creatinine Ratio 14 Glucose Level 94 mg/dL Calcium Level 8.3 mg/dL Total Bilirubin 0.4 mg/dL Direct Bilirubin 0.2 mg/dL Aspartate Amino Transf (AST/SGOT) 161 U/L Alanine Aminotransferase (ALT/SGPT) 413 U/L Alkaline Phosphatase 124 U/L Total Protein 6.3 g/dL Albumin 2.6 g/dL Albumin/Globulin Ratio 0.7 Imaging: MRCP Findings: Patient had difficulty following breathing instructions due to language barrier and issues with understanding instructions. Mildly dilated common bile duct measuring up to 0.9 cm. Common hepatic duct, common bile duct and visualized portions of the pancreatic duct are patent, without intraluminal filling defect or acute truncation. The liver, adrenals, spleen and pancreas are included in most sequences and appear normal. Multiple simple appearing renal cysts, largest of which is in the right interpolar region measuring 3.1 x 3.6 cm. Infrarenal abdominal aortic ectasia measuring up to 2.8 cm. Tortuous descending thoracic aorta. Mild cardiomegaly. IMPRESSION: Patient motion somewhat limits evaluation. Mildly dilated common bile duct without evidence of filling defect or acute truncation. PE: GEN: NAD, up to chair LUNGS: clear HEART: RRR ABD: S/ND/NT NEURO/PSYCH: A & O 3 A/P: Transaminitis - improved -cholelithiasis Sepsis, hypoxia -atbx per ID/pulm -- LFTs improved from admission, MRCP w/o filling defect. ROBY DENNISON Jan 14, 2017 13:56
[2017-01-14 14:20] LABS: HEP A IGM ABDY Negative (Negative)
[2017-01-14 15:00] VITALS: BP 148/67
[2017-01-14 19:15] VITALS: BP 132/69
[2017-01-14] MEDS: LACTOBACILLUS RHAMNOSUS GG 1 CAPSULE. PO SCH (21:30)
[2017-01-14 23:20] VITALS: BP 105/36
[2017-01-15 03:32] VITALS: BP 94/44
[2017-01-15 05:30] LABS: BASO # 0.1 x10^3/uL (0.0-0.2); BASO % 1 % (0-3); EOS % 3 % (0-3); HEMATOCRIT 31.4 % (36.0-47.0); HEMOGLOBIN 10.4 g/dL (12.0-15.5); LYMPH # 2.1 x10^3/uL (1.0-4.8); LYMPH % 34 % (24-48); MEAN CORPUSCULAR HEMOGLOBIN 33 pg (25-35); MEAN CORPUSCULAR HGB CONC 33 g/dL (31-37); MEAN CORPUSCULAR VOLUME 99 fL (79-100); MONO % 8 % (0-9); NEUT % 54 % (31-73); PLATELET COUNT 121 x10^3/uL (140-400); RED BLOOD COUNT 3.19 x10^6/uL (3.50-5.40); RED CELL DISTRIBUTION WIDTH 14.8 % (11.5-14.5); WHITE BLOOD COUNT 6.1 x10^3/uL (4.0-11.0)
[2017-01-15 05:50] LABS: ALBUMIN 2.7 g/dL (3.4-5.0); ALBUMIN/GLOBULIN RATIO 0.7 (1.0-1.7); CREATININE 0.8 mg/dL (0.6-1.0); GFR 69.6; POTASSIUM 3.8 mmol/L (3.5-5.1); TOTAL BILIRUBIN 0.5 mg/dL (0.2-1.0); TOTAL PROTEIN 6.5 g/dL (6.4-8.2)
[2017-01-15 07:30] VITALS: BP 159/76
[2017-01-15] MEDS: ASPIRIN ENTERIC COATED 81 MG TABLET.DR. PO SCH (07:47)
[2017-01-15] MEDS: PANTOPRAZOLE 40 MG TABLET.DR. PO SCH (07:47)
[2017-01-15] MEDS: LACTOBACILLUS RHAMNOSUS GG 1 CAPSULE. PO SCH (07:48)
[2017-01-15] MEDS: CARVEDILOL 3.125 MG TABLET. PO SCH (07:48)
[2017-01-15] MEDS: LISINOPRIL 10 MG TABLET PO SCH (07:48)
[2017-01-15] MEDS: IPRATRPIUM/ALBUTEROL 0.5/2.5MG 3 ML NEBU. NEB SCH ×3 (07:49→16:05)
--- NOTE | 2017-01-15 09:49 | PDOC ---
PROGRESS NOTES Subjective Subjective feels better ,anxious to go home Objective Objective Vital Signs Date Time Temp Pulse Resp B/P (MAP) Pulse Ox O2 Delivery O2 Flow Rate FiO2 01/15/17 07:53 Nasal Cannula 2.0 01/15/17 07:50 100 01/15/17 07:48 71 159/76 01/15/17 07:30 97.5 18 97.5 Intake and Output 01/16/17 07:00 Intake Total 120 ml Balance 120 ml Intake Oral 120 ml Physical Exam Abdomen: No tenderness Heart: Regular rate, Normal S1, Normal S2, Other (2/6 systolic murmur ) Extremities: No edema, Normal pulses General: Alert, Oriented X3, Cooperative HEENT: Atraumatic, Mucous membr. moist/pink Lungs: Clear to auscultation, Other (diminished bases ) MUSCULOSKELETAL: Other (left side strength diminished) Neuro: Normal speech, Sensation intact Psych/Mental Status: Mental status NL, Mood NL Skin: No significant lesion Diagnosis Problem List Problems Medical Problems: (1) Community acquired pneumonia Status: Acute (2) Hypoxia Status: Acute Assessment Assessment Assessment IMP: GNR sepsis, POA Transaminitis w/ dilated CBD. H/o known cholelithiasis Hypoxia w/ infiltrate vs pulmonary edema CKD CAD Plan Plan of Care: d/c home today tolerating diet diet. po vantin x10 days. lft trending down MRCP-ve f/u pcp in 1 week spoke with ID Problems: Plan Plan of Care Problems Medical Problems: (1) Community acquired pneumonia Status: Acute (2) Hypoxia Status: Acute Comment Review of Relevant I have reviewed the following items rabia (where applicable) has been applied. Labs Laboratory Tests Test 01/15/17 04:20 White Blood Count 6.1 x10^3/uL (4.0-11.0) Red Blood Count 3.19 x10^6/uL (3.50-5.40) Hemoglobin 10.4 g/dL (12.0-15.5) Hematocrit 31.4 % (36.0-47.0) Mean Corpuscular Volume 99 fL (79-100) Mean Corpuscular Hemoglobin 33 pg (25-35) Mean Corpuscular Hemoglobin Concent 33 g/dL (31-37) Red Cell Distribution Width 14.8 % (11.5-14.5) Platelet Count 121 x10^3/uL (140-400) Neutrophils (%) (Auto) 54 % (31-73) Lymphocytes (%) (Auto) 34 % (24-48) Monocytes (%) (Auto) 8 % (0-9) Eosinophils (%) (Auto) 3 % (0-3) Basophils (%) (Auto) 1 % (0-3) Neutrophils # (Auto) 3.3 x10^3uL (1.8-7.7) Lymphocytes # (Auto) 2.1 x10^3/uL (1.0-4.8) Monocytes # (Auto) 0.5 x10^3/uL (0.0-1.1) Eosinophils # (Auto) 0.2 x10^3/uL (0.0-0.7) Basophils # (Auto) 0.1 x10^3/uL (0.0-0.2) Sodium Level 144 mmol/L (136-145) Potassium Level 3.8 mmol/L (3.5-5.1) Chloride Level 109 mmol/L (98-107) Carbon Dioxide Level 28 mmol/L (21-32) Anion Gap 7 (6-14) Blood Urea Nitrogen 15 mg/dL (7-20) Creatinine 0.8 mg/dL (0.6-1.0) Estimated GFR (Cockcroft-Gault) 69.6 BUN/Creatinine Ratio 19 (6-20) Glucose Level 94 mg/dL (70-99) Calcium Level 9.0 mg/dL (8.5-10.1) Total Bilirubin 0.5 mg/dL (0.2-1.0) Aspartate Amino Transf (AST/SGOT) 90 U/L (15-37) Alanine Aminotransferase (ALT/SGPT) 302 U/L (14-59) Alkaline Phosphatase 123 U/L (46-116) Total Protein 6.5 g/dL (6.4-8.2) Albumin 2.7 g/dL (3.4-5.0) Albumin/Globulin Ratio 0.7 (1.0-1.7) Microbiology 01/12/17 Blood Culture - Preliminary, Resulted NO GROWTH AFTER 1 DAY 01/12/17 Urine Culture - Final, Complete 01/12/17 Urine Culture Result 1 (MIKE) - Final, Complete 01/12/17 Antimicrobic Susceptibility - Final, Complete Medications Current Medications Lactobacillus Rhamnosus (Culturelle) 1 cap BID PO Last administered on t 07:48; Start 01/14/17 at 21:00 Vitals/I & O Vital Sign - Last 24 Hours 01/14/17 01/14/17 01/14/17 01/14/17 11:00 12:25 15:00 16:47 Temp 97.7 99.0 97.7 99.0 Pulse 63 72 Resp 18 18 B/P (MAP) 132/63 (86) 148/67 (94) Pulse Ox 94 97 97 96 O2 Delivery Nasal Cannula Nasal Cannula Nasal Cannula Nasal Cannula O2 Flow Rate 2.0 2.0 2.0 2.0 01/14/17 01/14/17 01/14/17 01/14/17 16:53 19:15 19:42 19:54 Temp 98.0 98.0 Pulse 99 76 Resp 18 B/P (MAP) 148/67 132/69 (90) Pulse Ox 96 95 O2 Delivery Nasal Cannula Nasal Cannula Nasal Cannula O2 Flow Rate 2.0 2.0 2.0 01/14/17 01/15/17 01/15/17 01/15/17 23:20 03:32 07:30 07:48 Temp 98.1 98.2 97.5 98.1 98.2 97.5 Pulse 63 65 71 71 Resp 16 18 18 B/P (MAP) 105/36 (59) 94/44 (61) 159/76 (103) 159/76 Pulse Ox 95 94 91 O2 Delivery Nasal Cannula Nasal Cannula Room Air O2 Flow Rate 2.0 2.0 01/15/17 01/15/17 01/15/17 07:48 07:50 07:53 Pulse 71 B/P (MAP) 159/76 Pulse Ox 100 O2 Delivery Nasal Cannula Nasal Cannula O2 Flow Rate 2.0 2.0 Intake and Output 01/15/17 01/15/17 01/16/17 15:00 23:00 07:00 Intake Total 120 ml Balance 120 ml EDMAR CARNEY MD Jan 15, 2017 09:49
[2017-01-15] MEDS ORDERED: CEFP200T PO (09:53)
--- NOTE | 2017-01-15 10:07 | PDOC ---
PULMONARY PROGRESS NOTES Subjective PT NOT MORE SOA Vitals Vital Signs Date Time Temp Pulse Resp B/P (MAP) Pulse Ox O2 Delivery O2 Flow Rate FiO2 01/15/17 07:53 Nasal Cannula 2.0 01/15/17 07:50 100 01/15/17 07:48 71 159/76 01/15/17 07:30 97.5 18 97.5 General: Alert, No acute distress Lungs: Clear Cardiovascular: S1, S2 Abdomen: Soft Neuro Exam: Alert Extremities: No Edema Skin: Warm Labs Laboratory Tests Test 01/14/17 05:10 01/15/17 04:20 White Blood Count 5.0 x10^3/uL (4.0-11.0) 6.1 x10^3/uL (4.0-11.0) Red Blood Count 3.25 x10^6/uL (3.50-5.40) 3.19 x10^6/uL (3.50-5.40) Hemoglobin 10.7 g/dL (12.0-15.5) 10.4 g/dL (12.0-15.5) Hematocrit 32.2 % (36.0-47.0) 31.4 % (36.0-47.0) Mean Corpuscular Volume 99 fL (79-100) 99 fL (79-100) Mean Corpuscular Hemoglobin 33 pg (25-35) 33 pg (25-35) Mean Corpuscular Hemoglobin Concent 33 g/dL (31-37) 33 g/dL (31-37) Red Cell Distribution Width 14.8 % (11.5-14.5) 14.8 % (11.5-14.5) Platelet Count 107 x10^3/uL (140-400) 121 x10^3/uL (140-400) Neutrophils (%) (Auto) 46 % (31-73) 54 % (31-73) Lymphocytes (%) (Auto) 39 % (24-48) 34 % (24-48) Monocytes (%) (Auto) 10 % (0-9) 8 % (0-9) Eosinophils (%) (Auto) 4 % (0-3) 3 % (0-3) Basophils (%) (Auto) 1 % (0-3) 1 % (0-3) Neutrophils # (Auto) 2.3 x10^3uL (1.8-7.7) 3.3 x10^3uL (1.8-7.7) Lymphocytes # (Auto) 1.9 x10^3/uL (1.0-4.8) 2.1 x10^3/uL (1.0-4.8) Monocytes # (Auto) 0.5 x10^3/uL (0.0-1.1) 0.5 x10^3/uL (0.0-1.1) Eosinophils # (Auto) 0.2 x10^3/uL (0.0-0.7) 0.2 x10^3/uL (0.0-0.7) Basophils # (Auto) 0.0 x10^3/uL (0.0-0.2) 0.1 x10^3/uL (0.0-0.2) Sodium Level 143 mmol/L (136-145) 144 mmol/L (136-145) Potassium Level 3.8 mmol/L (3.5-5.1) 3.8 mmol/L (3.5-5.1) Chloride Level 112 mmol/L (98-107) 109 mmol/L (98-107) Carbon Dioxide Level 26 mmol/L (21-32) 28 mmol/L (21-32) Anion Gap 5 (6-14) 7 (6-14) Blood Urea Nitrogen 13 mg/dL (7-20) 15 mg/dL (7-20) Creatinine 0.9 mg/dL (0.6-1.0) 0.8 mg/dL (0.6-1.0) Estimated GFR (Cockcroft-Gault) 60.7 69.6 BUN/Creatinine Ratio 14 (6-20) 19 (6-20) Glucose Level 94 mg/dL (70-99) 94 mg/dL (70-99) Calcium Level 8.3 mg/dL (8.5-10.1) 9.0 mg/dL (8.5-10.1) Total Bilirubin 0.4 mg/dL (0.2-1.0) 0.5 mg/dL (0.2-1.0) Direct Bilirubin 0.2 mg/dL (0.0-0.2) Aspartate Amino Transf (AST/SGOT) 161 U/L (15-37) 90 U/L (15-37) Alanine Aminotransferase (ALT/SGPT) 413 U/L (14-59) 302 U/L (14-59) Alkaline Phosphatase 124 U/L (46-116) 123 U/L (46-116) Total Protein 6.3 g/dL (6.4-8.2) 6.5 g/dL (6.4-8.2) Albumin 2.6 g/dL (3.4-5.0) 2.7 g/dL (3.4-5.0) Albumin/Globulin Ratio 0.7 (1.0-1.7) 0.7 (1.0-1.7) Laboratory Tests Test 01/15/17 04:20 White Blood Count 6.1 x10^3/uL (4.0-11.0) Red Blood Count 3.19 x10^6/uL (3.50-5.40) Hemoglobin 10.4 g/dL (12.0-15.5) Hematocrit 31.4 % (36.0-47.0) Mean Corpuscular Volume 99 fL (79-100) Mean Corpuscular Hemoglobin 33 pg (25-35) Mean Corpuscular Hemoglobin Concent 33 g/dL (31-37) Red Cell Distribution Width 14.8 % (11.5-14.5) Platelet Count 121 x10^3/uL (140-400) Neutrophils (%) (Auto) 54 % (31-73) Lymphocytes (%) (Auto) 34 % (24-48) Monocytes (%) (Auto) 8 % (0-9) Eosinophils (%) (Auto) 3 % (0-3) Basophils (%) (Auto) 1 % (0-3) Neutrophils # (Auto) 3.3 x10^3uL (1.8-7.7) Lymphocytes # (Auto) 2.1 x10^3/uL (1.0-4.8) Monocytes # (Auto) 0.5 x10^3/uL (0.0-1.1) Eosinophils # (Auto) 0.2 x10^3/uL (0.0-0.7) Basophils # (Auto) 0.1 x10^3/uL (0.0-0.2) Sodium Level 144 mmol/L (136-145) Potassium Level 3.8 mmol/L (3.5-5.1) Chloride Level 109 mmol/L (98-107) Carbon Dioxide Level 28 mmol/L (21-32) Anion Gap 7 (6-14) Blood Urea Nitrogen 15 mg/dL (7-20) Creatinine 0.8 mg/dL (0.6-1.0) Estimated GFR (Cockcroft-Gault) 69.6 BUN/Creatinine Ratio 19 (6-20) Glucose Level 94 mg/dL (70-99) Calcium Level 9.0 mg/dL (8.5-10.1) Total Bilirubin 0.5 mg/dL (0.2-1.0) Aspartate Amino Transf (AST/SGOT) 90 U/L (15-37) Alanine Aminotransferase (ALT/SGPT) 302 U/L (14-59) Alkaline Phosphatase 123 U/L (46-116) Total Protein 6.5 g/dL (6.4-8.2) Albumin 2.7 g/dL (3.4-5.0) Albumin/Globulin Ratio 0.7 (1.0-1.7) Medications Active Scripts Medications Dose Route/Sig Max Daily Dose Days Date Category Lisinopril 10 Mg Tablet 10 Mg PO DAILY 11/27/14 Reported Hydrochlorothiazide Tablet (Hydrochlorothiazide) 12.5 Mg Tablet 12.5 Mg PO DAILY 11/27/14 Reported Advil (Ibuprofen) 200 Mg Capsule 200 Mg PO PRN Q4-6HRS PRN 11/27/14 Reported [Aspirin] 325 MG Tablet 81 Mg PO [id number] 07/21/14 Rx Carvedilol 3.125 Mg Tablet 1 Tab PO BID 07/20/14 Reported Atorvastatin Calcium 80 Mg Tablet 1 Tab PO QHS 07/20/14 Reported Impression . IMPRESSION: 1. Abnormal x-ray/ CT CHEST / pneumonitis vs CHF 2. Suspect gram-negative, possibly gram-positive pneumonia. 3. Elevated liver chemistries. 4. Fever. 5. Possible sepsis. Plan . RESP STATUS COMPENSATED CONTINUE SAME FOR NOW 1. Continue current antibiotics. 2. Nebulized treatments. 3. GI evaluation for elevated chemistries MARC DAUGHERTY MD Jan 15, 2017 10:07
--- NOTE | 2017-01-15 10:17 | PDOC ---
Infectious Disease Note Subjective Subjective pt feeling ok ROS ROS GEN: Denies fevers, chills, sweats HEENT: Denies blurred vision, sore throat CV: Denies chest pain RESP: Denies shortness of air, cough GI: Denies n/v/d NEURO: Denies confusion, dizziness MSK: Denies weakness, joint pain/swelling Vital Sign Vital Signs Vital Signs Date Time Temp Pulse Resp B/P (MAP) Pulse Ox O2 Delivery O2 Flow Rate FiO2 01/15/17 07:53 Nasal Cannula 2.0 01/15/17 07:50 100 01/15/17 07:48 71 159/76 01/15/17 07:30 97.5 18 97.5 Physical Exam PHYSICAL EXAM GENERAL: NAD, Alert HEENT: PERRL, OC/OP NECK: Supple, no JVD, no LN LUNGS: Clear HEART: S1S2, no gallop, no murmur ABD: Soft, NT, no organomegaly, no rebound EXT: No edema, no cyanosis PARTS DESIGNER: Alert, oriented x 3, no focal neurologic deficit SKIN: No rash IV: ok Labs Lab Laboratory Tests Test 01/15/17 04:20 White Blood Count 6.1 x10^3/uL (4.0-11.0) Red Blood Count 3.19 x10^6/uL (3.50-5.40) Hemoglobin 10.4 g/dL (12.0-15.5) Hematocrit 31.4 % (36.0-47.0) Mean Corpuscular Volume 99 fL (79-100) Mean Corpuscular Hemoglobin 33 pg (25-35) Mean Corpuscular Hemoglobin Concent 33 g/dL (31-37) Red Cell Distribution Width 14.8 % (11.5-14.5) Platelet Count 121 x10^3/uL (140-400) Neutrophils (%) (Auto) 54 % (31-73) Lymphocytes (%) (Auto) 34 % (24-48) Monocytes (%) (Auto) 8 % (0-9) Eosinophils (%) (Auto) 3 % (0-3) Basophils (%) (Auto) 1 % (0-3) Neutrophils # (Auto) 3.3 x10^3uL (1.8-7.7) Lymphocytes # (Auto) 2.1 x10^3/uL (1.0-4.8) Monocytes # (Auto) 0.5 x10^3/uL (0.0-1.1) Eosinophils # (Auto) 0.2 x10^3/uL (0.0-0.7) Basophils # (Auto) 0.1 x10^3/uL (0.0-0.2) Sodium Level 144 mmol/L (136-145) Potassium Level 3.8 mmol/L (3.5-5.1) Chloride Level 109 mmol/L (98-107) Carbon Dioxide Level 28 mmol/L (21-32) Anion Gap 7 (6-14) Blood Urea Nitrogen 15 mg/dL (7-20) Creatinine 0.8 mg/dL (0.6-1.0) Estimated GFR (Cockcroft-Gault) 69.6 BUN/Creatinine Ratio 19 (6-20) Glucose Level 94 mg/dL (70-99) Calcium Level 9.0 mg/dL (8.5-10.1) Total Bilirubin 0.5 mg/dL (0.2-1.0) Aspartate Amino Transf (AST/SGOT) 90 U/L (15-37) Alanine Aminotransferase (ALT/SGPT) 302 U/L (14-59) Alkaline Phosphatase 123 U/L (46-116) Total Protein 6.5 g/dL (6.4-8.2) Albumin 2.7 g/dL (3.4-5.0) Albumin/Globulin Ratio 0.7 (1.0-1.7) Objective Assessment GNR sepsis, POA Transaminitis w/ dilated CBD. H/o known cholelithiasis Hypoxia w/ infiltrate vs pulmonary edema CKD CAD Plan Plan of Care Clinically improving, Continue Rocephin for now Await GNR ID/susceptibilities f/u MRCP report D/w family d/w lab ID and susceptibility still pending ELYSE LUKE MD Jan 15, 2017 10:17
[2017-01-15 10:30] VITALS: BP 149/63
--- NOTE | 2017-01-15 11:52 | PDOC ---
Subjective: Subjective: Feeling better, ready to go home. Objective: Objective: Note DC orders. Vital Signs: Vital Signs Date Time Temp Pulse Resp B/P (MAP) Pulse Ox O2 Delivery O2 Flow Rate FiO2 01/15/17 07:53 Nasal Cannula 2.0 01/15/17 07:50 100 01/15/17 07:48 71 159/76 01/15/17 07:30 97.5 18 97.5 Labs: Laboratory Tests Test 01/15/17 04:20 White Blood Count 6.1 x10^3/uL Red Blood Count 3.19 x10^6/uL Hemoglobin 10.4 g/dL Hematocrit 31.4 % Mean Corpuscular Volume 99 fL Mean Corpuscular Hemoglobin 33 pg Mean Corpuscular Hemoglobin Concent 33 g/dL Red Cell Distribution Width 14.8 % Platelet Count 121 x10^3/uL Neutrophils (%) (Auto) 54 % Lymphocytes (%) (Auto) 34 % Monocytes (%) (Auto) 8 % Eosinophils (%) (Auto) 3 % Basophils (%) (Auto) 1 % Neutrophils # (Auto) 3.3 x10^3uL Lymphocytes # (Auto) 2.1 x10^3/uL Monocytes # (Auto) 0.5 x10^3/uL Eosinophils # (Auto) 0.2 x10^3/uL Basophils # (Auto) 0.1 x10^3/uL Sodium Level 144 mmol/L Potassium Level 3.8 mmol/L Chloride Level 109 mmol/L Carbon Dioxide Level 28 mmol/L Anion Gap 7 Blood Urea Nitrogen 15 mg/dL Creatinine 0.8 mg/dL Estimated GFR (Cockcroft-Gault) 69.6 BUN/Creatinine Ratio 19 Glucose Level 94 mg/dL Calcium Level 9.0 mg/dL Total Bilirubin 0.5 mg/dL Aspartate Amino Transf (AST/SGOT) 90 U/L Alanine Aminotransferase (ALT/SGPT) 302 U/L Alkaline Phosphatase 123 U/L Total Protein 6.5 g/dL Albumin 2.7 g/dL Albumin/Globulin Ratio 0.7 PE: GEN: NAD, dressed to leave NEURO/PSYCH: A & O 3 A/P: Transaminitis - improving -cholelithiasis, MRCP w/o choledocholithiasis Sepsis -- DC per primary. ROBY DENNISON Jan 15, 2017 11:52
[2017-01-15 14:25] LABS: HEP A IGM ABDY Negative (Negative)
[2017-01-15 15:30] VITALS: BP 157/75
== END 2017-01-15 16:30 | disposition home or self-care (01) | DRG 871 ==
LOC: ER 04:11 → 5 NORTH 05:22
PROVIDERS: ADMIT Internal Medicine; ATTEND Internal Medicine
DX: A41.50 Gram-negative sepsis, unspecified (principal); J15.6 Pneumonia due to other Gram-negative bacteria; D69.6 Thrombocytopenia, unspecified; E78.5 Hyperlipidemia, unspecified; F41.9 Anxiety disorder, unspecified; I12.9 Hypertensive chronic kidney disease with stage 1 through stage 4 chronic kidney disease, or unspecified chronic kidney disease; I25.10 Atherosclerotic heart disease of native coronary artery without angina pectoris; I25.2 Old myocardial infarction; K21.9 Gastro-esophageal reflux disease without esophagitis; M19.90 Unspecified osteoarthritis, unspecified site; K80.20 Calculus of gallbladder without cholecystitis without obstruction; N18.2 Chronic kidney disease, stage 2 (mild); R09.02 Hypoxemia; Z82.49 Family history of ischemic heart disease and other diseases of the circulatory system; Z86.73 Personal history of transient ischemic attack (TIA), and cerebral infarction without residual deficits; Z95.1 Presence of aortocoronary bypass graft
CPT/HCPCS: 36415; 71010; 71250; 74181; 76700; 80053; 80061; 80074; 80076; 81001; 82150; 82962; 83605; 83690; 83735; 83880; 84484; 85007; 85025; 86706; 87040; 87086; 87186; 87205; 87804; 93005; 93306; 94250; 94640; 94760; 96365; 96375; J0456; J0690; J0696; J2405; J7030; J7040; J7620; 97116; 97530; 99285-25